=== PATIENT | female | born 1995 | race Caucasian/White ===

== ENCOUNTER 2023-10-18 21:47 | Observation (INO) ==
[2023-10-18] MEDS: ONDANSETRON INJ 2 MG/ML 2 ML VIAL IV STA (22:13)
[2023-10-18 22:28] LABS: Basophils # (auto) 0.07 K/uL (0.00-0.20); Basophils % (auto) 0.4 %; Eosinophils # (auto) 0.08 K/uL (0.00-0.50); Eosinophils % (auto) 0.5 %; Hematocrit (blood only) 45.1 % (37.0-47.0); Hemoglobin 15.4 g/dl (12.0-16.0); Immature Granulocytes # (auto) 0.09 K/uL (0.01-0.20); Immature Granulocytes % (auto) 0.5 %; Lymphocytes # (auto) 0.77 K/uL (1.20-3.40); Lymphocytes % (auto) 4.4 %; Mean Corpuscular Hemoglobin 28.8 pg (25.0-34.0); Mean Corpuscular Hgb Conc 34.1 g/dL (32.0-36.0); Mean Corpuscular Volume 84.3 fL (80.0-100.0); Monocytes # (auto) 0.93 K/uL (0.11-0.59); Monocytes % (auto) 5.4 %; Neutrophils # (auto) 15.43 K/uL (1.40-6.50); Neutrophils % (auto) 88.8 %; Platelet Count 331 K/uL (130-400); RDW Coefficient of Variation 13.7 % (11.5-14.5); RDW Standard Deviation 42.2 fL (36.4-46.3); Red Blood Count 5.35 M/uL (4.20-5.40); White Blood Count 17.37 K/ul (4.8-10.8)
[2023-10-18 22:45] LABS: Albumin Globulin Ratio 1.9 (0.9-2); Albumin Level 4.8 gm/dl (3.4-5.0); BUN Creatinine Ratio 17.4 (10-20); Bilirubin,Total 0.6 mg/dl (0.2-1.0); Calcium 9.6 mg/dl (8.6-10.3); Creatinine Clr Calc Pharmacy 102.5 ml/min; Est GFR (African American) 105.8 ml/min; Est GFR (Non-African American) 91.3 ml/min; Globulin 2.5 gm/dl (2.5-4.0); Potassium 3.8 mmol/L (3.5-5.1); Total Protein 7.3 gm/dl (6.0-8.3)
[2023-10-18 22:47] LABS: Pregnancy Test, Serum Negative (Negative)
--- NOTE | 2023-10-18 22:54 | Emergency Department Note ---
Impression & Plan Near syncope, Nausea, vomiting, and diarrhea, Orthostatic hypotension ED Provider Note CHIEF COMPLAINT: Nausea/vomiting/diarrhea, near syncope HISTORY OF PRESENTING ILLNESS: This is a 28-year-old female who presents to the emergency department by private vehicle with her mother with complaint of nausea/vomiting/diarrhea and feeling lightheaded, which started this evening around 7:30 PM. The patient states that she has been "feeling off" since last night, and that it was just something that she had eaten. She states she was having some nausea after dinner and took 2 Tums and then went for a walk. She states after she got back from the walk she started to have vomiting and diarrhea and then began to feel lightheaded. She states that she has not passed out, but has come close. She denies any bloody or bilious vomit and denies any blood in the stool. She denies any known sick contacts with similar symptoms. She did just complete a Z-Elmer recently for sinus infection, she states her sinus infection symptoms have completely resolved. She denies any fevers or chills. She denies any cough, congestion, sore throat, or other URI symptoms. She denies chest pain, chest tightness, shortness of breath, abdominal pain or back pain. She denies headache, vision changes, numbness/tingling or weakness of the extremities, or balance issues. She denies any urinary symptoms or unusual rash. She is currently on her menses. REVIEW OF SYSTEMS: A complete 10 point review of systems was reviewed with the patient with pertinent positives and negatives as per history of present illness. All else were negative. PAST MEDICAL HISTORY: Migraines, history of ACL repair and rotator cuff repair SOCIAL HISTORY: Lives at home, she denies tobacco use ALLERGIES: Reviewed in chart and with the patient PHYSICAL EXAM: CONSTITUTIONAL: Pleasant and cooperative. Nontoxic-appearing and in no acute distress. Does appear slightly pale. HEENT: Normocephalic, atraumatic. PERRL. Pharynx normal. No tongue, throat, or lip swelling. NECK: Supple, full active range of motion without discomfort. No neck stiffness. RESPIRATORY: Clear to auscultation bilaterally with no wheezing, crackles, rhonchi or stridor. Equal expansion bilaterally. CARDIOVASCULAR: Tachycardic rate, regular rhythm with no murmurs, rubs or gallops. Normal peripheral perfusion. No edema. GASTROINTESTINAL: Soft, nontender to palpation throughout, nondistended. No palpable masses or HSM. Bowel sounds present in all quadrants. No CVA tenderness bilaterally. MUSCULOSKELETAL: Full range of motion of all joints without discomfort. INTEGUMENTARY: No rash or other significant dermatologic conditions noted. NEUROLOGIC: Alert and oriented X 4 with normal affect. No focal neurologic deficits noted. Normal strength and sensation in all 4 extremities. Normal speech. Normal gait observed. ED COURSE AND MEDICAL DECISION MAKING: CC: Patient presenting with complaint of nausea/vomiting/diarrhea, near syncope DIFFERENTIAL DIAGNOSIS: Includes, but not limited to gastroenteritis, infectious colitis, viral illness, acute dehydration, orthostatic hypotension, vasovagal event, allergic reaction/anaphylaxis, anemia, electrolyte abnormality, hypoglycemia, infection, bacteremia/sepsis, cardiac dysrhythmia, pulmonary embolism, among others. INTERPRETATION OF LABS: Leukocytosis, no anemia, normal platelets, no significant electrolyte abnormalities, normal renal function, normal liver enzymes and lipase. Serum negative. Lactate and procalcitonin are not significantly elevated. UA shows ketones with no evidence for UTI. C. difficile negative. Respiratory panel negative. IMAGING: A 1 view chest x-ray was independently reviewed by myself and shows no acute cardiopulmonary abnormality, no pneumothorax or consolidation by my interpretation. EKG: Indication was lightheadedness/near syncope. Shows sinus tachycardia with a rate of 111 bpm, normal intervals, no ST elevation or depression, no ectopy by my interpretation. No previous EKG available for comparison. MEDICATION RECONCILIATION: I attest that I have personally reviewed the patient's current medication list. INITIAL VITAL SIGNS REVIEW: I reviewed the patient's initial vital signs and interpret them as follows: T: Afebrile; BP: Hypotensive; HR: Tachycardic; RR: Within normal limits; Pulse Ox: Within normal limits on room air. MDM SUMMARY: Some initial orders were placed by nursing staff under critical pathways protocol, these were reviewed by me. Patient was evaluated by me in the triage protocol room initially, history and physical exam performed. Patient is notably hypotensive, tachycardic, and presyncopal during exam. No active vomiting, but complains of nausea. The patient was taken to room A4 and was further examined there. Initial labs notable for leukocytosis of 17K, not anemic. The patient is afebrile and does not have any definite infectious source initially identified. The patient denies any rash, itching, throat tightness or shortness of breath. No chest pain or abdominal pain. No calf pain or swelling. I do not have a high suspicion for pulmonary embolism or allergic reaction. 2 L normal saline fluid bolus was ordered for fluid resuscitation. Additional orders were placed at bedside for EKG, blood cultures, lactate and procalcitonin, respiratory and stool bio fire testing, C. difficile testing, chest x-ray, and orthostatic vital signs. Cardiac monitoring: An order was placed for continuous cardiac monitoring. The monitor shows a rate of 114 bpm with sinus tachycardia rhythm. Labs and imaging reviewed, labs notable for leukocytosis, no other significant lab abnormalities. Lactate and procalcitonin are normal. C. difficile negative. Viral respiratory panel negative. No UTI. Chest x-ray is clear with no acute abnormality noted by my interpretation. EKG shows sinus tachycardia with no acute ischemic changes or dysrhythmia. Patient was closely reassessed throughout her ED stay, she continues to deny any abdominal or chest pain. Nausea improved somewhat after zofran. Patient has been persistently hypotensive and tachycardic, with mild improvement, but remains lightheaded with position changes. Orthostatic vital signs were positive after 2 L IV fluids fully infused. Given the patient's persistent symptoms, with persistent hypotension, tachycardia, and lightheadedness after appropriate IV fluid bolus, I did feel the patient warranted admission for further evaluation and workup. I spoke on the phone with Dr. Mcgraw, hospitalist, who agrees to evaluate the patient for admission. The patient and her mother were updated on all results and plan for admission, all questions were answered to the best of my ability and the patient was agreeable to this plan. The patient was stable at the time of admission. Patient discussed with Dr. Siegel, ED attending, who also evaluated the patient and agrees with my assessment, plan, and disposition. The chart was completed utilizing [employer] Speech voice recognition software. Grammatical errors, random word insertions, pronoun errors, and incomplete sentences are an occasional consequence of this system due to software limitations, ambient noise, and hardware issues. Any formal questions or concerns about the content, text, or information contained within the body of this dictation should be directly addressed to the nurse practitioner for clarification. Past Med/Surg History Social History Smoking Status: Never smoker Hx Alcohol Use: Yes Hx Substance Use: No Preferred Language: [place] Communication Ability: Effective Fiber Technologist Required: No Beliefs That Will Affect Care: None Current Living Situation: Significant Other Feels Safe at Home: Yes Safety Concerns: Feels Safe At This Time Allergies Allergies Allergy/AdvReac Type Severity Reaction Status Date / Time amoxicillin Allergy Intermediate Hives Verified 10/18/23 23:50 Penicillins Allergy Intermediate Hives Verified 10/18/23 23:50 Sulfa (Sulfonamide Allergy Intermediate Hives Verified 10/18/23 23:50 Antibiotics) morphine AdvReac Intermediate Vomiting Verified 10/18/23 23:50 Home Meds Home Medications Medication Instructions Recorded Confirmed vit no.95-ferrous 1 tab PO DAILY 10/18/23 10/18/23 fumarate 28 mg-folic acid 800 mcg tablet () Results & Data (ED) Vital Signs Vital Signs - 24 hr 10/18/23 21:57 10/18/23 22:59 10/18/23 22:59 Temperature 36.5 C Temperature Source Temporal Artery Scan Pulse Rate - Lying Pulse Rate - Sitting Pulse Rate - Standing Pulse Rate 124 H 101 H 98 H Pulse Rate [Apical] Pulse Rate from SpO2 Sensor 98 H Pulse Rhythm Pulse Rhythm [Apical] Pulse Strength [Apical] Respiratory Rate 18 21 Respiratory Effort / Characteristics Non-Labored Spontaneous Respiratory Depth Normal Respiratory Pattern Regular Blood Pressure - Lying Blood Pressure - Sitting Blood Pressure- Standing Blood Pressure 85/59 L Blood Pressure [Right Arm] Blood Pressure Mean 67 Blood Pressure Mean [Right Arm] Blood Pressure Position Sitting Blood Pressure Position [Right Arm] Pulse Oximetry 100 100 Oxygen Delivery Method Room Air Sepsis Recent Fever Within 48 Hours No Sepsis New/Unexplained Change in Mental Status No Sepsis Action Taken by Nursing No Action Required 10/18/23 23:00 10/18/23 23:12 10/18/23 23:12 Temperature Temperature Source Pulse Rate - Lying Pulse Rate - Sitting Pulse Rate - Standing Pulse Rate 103 H 102 H Pulse Rate [Apical] Pulse Rate from SpO2 Sensor 102 H 102 H Pulse Rhythm Pulse Rhythm [Apical] Pulse Strength [Apical] Respiratory Rate 15 20 Respiratory Effort / Characteristics Respiratory Depth Respiratory Pattern Blood Pressure - Lying Blood Pressure - Sitting Blood Pressure- Standing Blood Pressure 76/57 L Blood Pressure [Right Arm] Blood Pressure Mean 63 Blood Pressure Mean [Right Arm] Blood Pressure Position Blood Pressure Position [Right Arm] Pulse Oximetry 100 98 Oxygen Delivery Method Room Air Room Air Sepsis Recent Fever Within 48 Hours Sepsis New/Unexplained Change in Mental Status Sepsis Action Taken by Nursing 10/18/23 23:14 10/18/23 23:15 10/18/23 23:15 Temperature Temperature Source Pulse Rate - Lying Pulse Rate - Sitting Pulse Rate - Standing Pulse Rate 103 H 105 H Pulse Rate [Apical] Pulse Rate from SpO2 Sensor 104 H 105 H Pulse Rhythm Pulse Rhythm [Apical] Pulse Strength [Apical] Respiratory Rate 23 27 H Respiratory Effort / Characteristics Respiratory Depth Respiratory Pattern Blood Pressure - Lying Blood Pressure - Sitting Blood Pressure- Standing Blood Pressure 85/55 L Blood Pressure [Right Arm] Blood Pressure Mean 71 Blood Pressure Mean [Right Arm] Blood Pressure Position Blood Pressure Position [Right Arm] Pulse Oximetry 99 99 Oxygen Delivery Method Room Air Room Air Sepsis Recent Fever Within 48 Hours Sepsis New/Unexplained Change in Mental Status Sepsis Action Taken by Nursing 10/18/23 23:16 10/18/23 23:16 10/18/23 23:17 Temperature Temperature Source Pulse Rate - Lying Pulse Rate - Sitting Pulse Rate - Standing Pulse Rate 105 H Pulse Rate [Apical] Pulse Rate from SpO2 Sensor 102 H Pulse Rhythm Pulse Rhythm [Apical] Pulse Strength [Apical] Respiratory Rate 19 Respiratory Effort / Characteristics Respiratory Depth Respiratory Pattern Blood Pressure - Lying Blood Pressure - Sitting Blood Pressure- Standing Blood Pressure 78/57 L 82/66 L Blood Pressure [Right Arm] Blood Pressure Mean 60 68 Blood Pressure Mean [Right Arm] Blood Pressure Position Blood Pressure Position [Right Arm] Pulse Oximetry 99 Oxygen Delivery Method Room Air Sepsis Recent Fever Within 48 Hours Sepsis New/Unexplained Change in Mental Status Sepsis Action Taken by Nursing 10/18/23 23:17 10/18/23 23:18 10/18/23 23:18 Temperature Temperature Source Pulse Rate - Lying Pulse Rate - Sitting Pulse Rate - Standing Pulse Rate 98 H 105 H Pulse Rate [Apical] Pulse Rate from SpO2 Sensor 98 H 105 H Pulse Rhythm Pulse Rhythm [Apical] Pulse Strength [Apical] Respiratory Rate 23 21 Respiratory Effort / Characteristics Respiratory Depth Respiratory Pattern Blood Pressure - Lying Blood Pressure - Sitting Blood Pressure- Standing Blood Pressure 85/56 L Blood Pressure [Right Arm] Blood Pressure Mean 68 Blood Pressure Mean [Right Arm] Blood Pressure Position Blood Pressure Position [Right Arm] Pulse Oximetry 100 100 Oxygen Delivery Method Room Air Room Air Sepsis Recent Fever Within 48 Hours Sepsis New/Unexplained Change in Mental Status Sepsis Action Taken by Nursing 10/18/23 23:19 10/18/23 23:19 10/18/23 23:19 Temperature Temperature Source Pulse Rate - Lying Pulse Rate - Sitting Pulse Rate - Standing Pulse Rate 103 H Pulse Rate [Apical] Pulse Rate from SpO2 Sensor 105 H Pulse Rhythm Pulse Rhythm [Apical] Pulse Strength [Apical] Respiratory Rate 16 Respiratory Effort / Characteristics Respiratory Depth Respiratory Pattern Blood Pressure - Lying Blood Pressure - Sitting Blood Pressure- Standing Blood Pressure 87/55 L 83/57 L Blood Pressure [Right Arm] Blood Pressure Mean 60 68 Blood Pressure Mean [Right Arm] Blood Pressure Position Blood Pressure Position [Right Arm] Pulse Oximetry 100 Oxygen Delivery Method Sepsis Recent Fever Within 48 Hours Sepsis New/Unexplained Change in Mental Status Sepsis Action Taken by Nursing 10/18/23 23:24 10/18/23 23:37 10/18/23 23:37 Temperature 36.8 C Temperature Source Oral Pulse Rate - Lying Pulse Rate - Sitting Pulse Rate - Standing Pulse Rate 111 H Pulse Rate [Apical] Pulse Rate from SpO2 Sensor 111 H Pulse Rhythm Pulse Rhythm [Apical] Pulse Strength [Apical] Respiratory Rate 16 Respiratory Effort / Characteristics Respiratory Depth Respiratory Pattern Blood Pressure - Lying Blood Pressure - Sitting Blood Pressure- Standing Blood Pressure 110/72 Blood Pressure [Right Arm] Blood Pressure Mean 81 Blood Pressure Mean [Right Arm] Blood Pressure Position Blood Pressure Position [Right Arm] Pulse Oximetry 94 Oxygen Delivery Method Room Air Sepsis Recent Fever Within 48 Hours Sepsis New/Unexplained Change in Mental Status Sepsis Action Taken by Nursing 10/18/23 23:40 10/18/23 23:45 10/18/23 23:45 Temperature Temperature Source Pulse Rate - Lying Pulse Rate - Sitting Pulse Rate - Standing Pulse Rate 108 H 102 H Pulse Rate [Apical] Pulse Rate from SpO2 Sensor 103 H Pulse Rhythm Regular Pulse Rhythm [Apical] Pulse Strength [Apical] Respiratory Rate 17 16 Respiratory Effort / Characteristics Respiratory Depth Respiratory Pattern Blood Pressure - Lying Blood Pressure - Sitting Blood Pressure- Standing Blood Pressure 121/72 Blood Pressure [Right Arm] Blood Pressure Mean 84 Blood Pressure Mean [Right Arm] Blood Pressure Position Blood Pressure Position [Right Arm] Pulse Oximetry 97 98 Oxygen Delivery Method Room Air Room Air Sepsis Recent Fever Within 48 Hours Sepsis New/Unexplained Change in Mental Status Sepsis Action Taken by Nursing 10/18/23 23:45 10/19/23 00:00 10/19/23 00:00 Temperature Temperature Source Pulse Rate - Lying Pulse Rate - Sitting Pulse Rate - Standing Pulse Rate 103 H Pulse Rate [Apical] 107 H Pulse Rate from SpO2 Sensor 103 H Pulse Rhythm Pulse Rhythm [Apical] Regular Pulse Strength [Apical] Normal Respiratory Rate 18 18 Respiratory Effort / Characteristics Non-Labored Spontaneous Respiratory Depth Normal Respiratory Pattern Regular Blood Pressure - Lying Blood Pressure - Sitting Blood Pressure- Standing Blood Pressure 106/82 Blood Pressure [Right Arm] 121/72 Blood Pressure Mean 91 Blood Pressure Mean [Right Arm] 88 Blood Pressure Position Blood Pressure Position [Right Arm] Semi-fowlers Pulse Oximetry 100 100 Oxygen Delivery Method Room Air Room Air Sepsis Recent Fever Within 48 Hours Sepsis New/Unexplained Change in Mental Status Sepsis Action Taken by Nursing 10/19/23 00:15 10/19/23 00:30 10/19/23 00:30 Temperature Temperature Source Pulse Rate - Lying Pulse Rate - Sitting Pulse Rate - Standing Pulse Rate 101 H 106 H Pulse Rate [Apical] Pulse Rate from SpO2 Sensor 104 H 104 H Pulse Rhythm Pulse Rhythm [Apical] Pulse Strength [Apical] Respiratory Rate 20 19 Respiratory Effort / Characteristics Respiratory Depth Respiratory Pattern Blood Pressure - Lying Blood Pressure - Sitting Blood Pressure- Standing Blood Pressure 98/65 L Blood Pressure [Right Arm] Blood Pressure Mean 73 Blood Pressure Mean [Right Arm] Blood Pressure Position Blood Pressure Position [Right Arm] Pulse Oximetry 100 100 Oxygen Delivery Method Room Air Room Air Sepsis Recent Fever Within 48 Hours Sepsis New/Unexplained Change in Mental Status Sepsis Action Taken by Nursing 10/19/23 00:45 10/19/23 00:45 10/19/23 01:00 Temperature Temperature Source Pulse Rate - Lying Pulse Rate - Sitting Pulse Rate - Standing Pulse Rate 115 H Pulse Rate [Apical] Pulse Rate from SpO2 Sensor 115 H Pulse Rhythm Pulse Rhythm [Apical] Pulse Strength [Apical] Respiratory Rate 15 Respiratory Effort / Characteristics Respiratory Depth Respiratory Pattern Blood Pressure - Lying Blood Pressure - Sitting Blood Pressure- Standing Blood Pressure 100/66 97/66 L Blood Pressure [Right Arm] Blood Pressure Mean 73 74 Blood Pressure Mean [Right Arm] Blood Pressure Position Blood Pressure Position [Right Arm] Pulse Oximetry 98 Oxygen Delivery Method Room Air Sepsis Recent Fever Within 48 Hours Sepsis New/Unexplained Change in Mental Status Sepsis Action Taken by Nursing 10/19/23 01:00 10/19/23 01:03 10/19/23 01:04 Temperature Temperature Source Pulse Rate - Lying 106 H Pulse Rate - Sitting 115 H Pulse Rate - Standing 134 H Pulse Rate 115 H Pulse Rate [Apical] Pulse Rate from SpO2 Sensor 117 H Pulse Rhythm Pulse Rhythm [Apical] Pulse Strength [Apical] Respiratory Rate 20 Respiratory Effort / Characteristics Respiratory Depth Respiratory Pattern Blood Pressure - Lying 98/62 L Blood Pressure - Sitting 87/69 L Blood Pressure- Standing 92/62 L Blood Pressure 98/62 L Blood Pressure [Right Arm] Blood Pressure Mean 68 Blood Pressure Mean [Right Arm] Blood Pressure Position Blood Pressure Position [Right Arm] Pulse Oximetry 97 Oxygen Delivery Method Room Air Sepsis Recent Fever Within 48 Hours Sepsis New/Unexplained Change in Mental Status Sepsis Action Taken by Nursing 10/19/23 01:04 10/19/23 01:05 10/19/23 01:05 Temperature Temperature Source Pulse Rate - Lying Pulse Rate - Sitting Pulse Rate - Standing Pulse Rate 111 H 113 H Pulse Rate [Apical] Pulse Rate from SpO2 Sensor 111 H 114 H Pulse Rhythm Pulse Rhythm [Apical] Pulse Strength [Apical] Respiratory Rate 21 18 Respiratory Effort / Characteristics Respiratory Depth Respiratory Pattern Blood Pressure - Lying Blood Pressure - Sitting Blood Pressure- Standing Blood Pressure 87/69 L Blood Pressure [Right Arm] Blood Pressure Mean 74 Blood Pressure Mean [Right Arm] Blood Pressure Position Blood Pressure Position [Right Arm] Pulse Oximetry 99 99 Oxygen Delivery Method Room Air Room Air Sepsis Recent Fever Within 48 Hours Sepsis New/Unexplained Change in Mental Status Sepsis Action Taken by Nursing 10/19/23 01:06 10/19/23 01:06 10/19/23 01:15 Temperature Temperature Source Pulse Rate - Lying Pulse Rate - Sitting Pulse Rate - Standing Pulse Rate 133 H Pulse Rate [Apical] Pulse Rate from SpO2 Sensor 133 H Pulse Rhythm Pulse Rhythm [Apical] Pulse Strength [Apical] Respiratory Rate 21 Respiratory Effort / Characteristics Respiratory Depth Respiratory Pattern Blood Pressure - Lying Blood Pressure - Sitting Blood Pressure- Standing Blood Pressure 92/62 L 99/73 L Blood Pressure [Right Arm] Blood Pressure Mean 71 80 Blood Pressure Mean [Right Arm] Blood Pressure Position Blood Pressure Position [Right Arm] Pulse Oximetry 98 Oxygen Delivery Method Room Air Sepsis Recent Fever Within 48 Hours Sepsis New/Unexplained Change in Mental Status Sepsis Action Taken by Nursing 10/19/23 01:15 10/19/23 01:30 10/19/23 01:30 Temperature Temperature Source Pulse Rate - Lying Pulse Rate - Sitting Pulse Rate - Standing Pulse Rate 106 H 97 H Pulse Rate [Apical] Pulse Rate from SpO2 Sensor 105 H 99 H Pulse Rhythm Pulse Rhythm [Apical] Pulse Strength [Apical] Respiratory Rate 16 15 Respiratory Effort / Characteristics Respiratory Depth Respiratory Pattern Blood Pressure - Lying Blood Pressure - Sitting Blood Pressure- Standing Blood Pressure 102/74 Blood Pressure [Right Arm] Blood Pressure Mean 79 Blood Pressure Mean [Right Arm] Blood Pressure Position Blood Pressure Position [Right Arm] Pulse Oximetry 95 92 Oxygen Delivery Method Room Air Room Air Sepsis Recent Fever Within 48 Hours Sepsis New/Unexplained Change in Mental Status Sepsis Action Taken by Nursing 10/19/23 01:45 10/19/23 01:45 10/19/23 02:00 Temperature Temperature Source Pulse Rate - Lying Pulse Rate - Sitting Pulse Rate - Standing Pulse Rate 99 H Pulse Rate [Apical] Pulse Rate from SpO2 Sensor 100 H Pulse Rhythm Pulse Rhythm [Apical] Pulse Strength [Apical] Respiratory Rate 17 Respiratory Effort / Characteristics Respiratory Depth Respiratory Pattern Blood Pressure - Lying Blood Pressure - Sitting Blood Pressure- Standing Blood Pressure 107/67 104/70 Blood Pressure [Right Arm] Blood Pressure Mean 84 74 Blood Pressure Mean [Right Arm] Blood Pressure Position Blood Pressure Position [Right Arm] Pulse Oximetry 93 Oxygen Delivery Method Room Air Sepsis Recent Fever Within 48 Hours Sepsis New/Unexplained Change in Mental Status Sepsis Action Taken by Nursing 10/19/23 02:00 10/19/23 02:15 10/19/23 02:15 Temperature Temperature Source Pulse Rate - Lying Pulse Rate - Sitting Pulse Rate - Standing Pulse Rate 110 H 114 H Pulse Rate [Apical] Pulse Rate from SpO2 Sensor 110 H 113 H Pulse Rhythm Pulse Rhythm [Apical] Pulse Strength [Apical] Respiratory Rate 17 20 Respiratory Effort / Characteristics Respiratory Depth Respiratory Pattern Blood Pressure - Lying Blood Pressure - Sitting Blood Pressure- Standing Blood Pressure 82/53 L Blood Pressure [Right Arm] Blood Pressure Mean 56 Blood Pressure Mean [Right Arm] Blood Pressure Position Blood Pressure Position [Right Arm] Pulse Oximetry 92 91 Oxygen Delivery Method Room Air Room Air Sepsis Recent Fever Within 48 Hours Sepsis New/Unexplained Change in Mental Status Sepsis Action Taken by Nursing 10/19/23 02:31 10/19/23 02:31 10/19/23 02:36 Temperature Temperature Source Pulse Rate - Lying Pulse Rate - Sitting Pulse Rate - Standing Pulse Rate 113 H Pulse Rate [Apical] 119 H Pulse Rate from SpO2 Sensor 112 H Pulse Rhythm Pulse Rhythm [Apical] Regular Pulse Strength [Apical] Normal Respiratory Rate 13 16 Respiratory Effort / Characteristics Non-Labored Spontaneous Respiratory Depth Normal Respiratory Pattern Regular Blood Pressure - Lying Blood Pressure - Sitting Blood Pressure- Standing Blood Pressure 95/72 L Blood Pressure [Right Arm] 95/72 L Blood Pressure Mean 83 Blood Pressure Mean [Right Arm] 79 Blood Pressure Position Blood Pressure Position [Right Arm] Pulse Oximetry 96 95 Oxygen Delivery Method Room Air Room Air Sepsis Recent Fever Within 48 Hours Sepsis New/Unexplained Change in Mental Status Sepsis Action Taken by Nursing 10/19/23 02:45 10/19/23 02:45 10/19/23 02:51 Temperature Temperature Source Pulse Rate - Lying Pulse Rate - Sitting Pulse Rate - Standing Pulse Rate 114 H 110 H Pulse Rate [Apical] Pulse Rate from SpO2 Sensor 112 H Pulse Rhythm Pulse Rhythm [Apical] Pulse Strength [Apical] Respiratory Rate 20 Respiratory Effort / Characteristics Respiratory Depth Respiratory Pattern Blood Pressure - Lying Blood Pressure - Sitting Blood Pressure- Standing Blood Pressure 85/62 L Blood Pressure [Right Arm] Blood Pressure Mean 71 Blood Pressure Mean [Right Arm] Blood Pressure Position Blood Pressure Position [Right Arm] Pulse Oximetry 94 Oxygen Delivery Method Room Air Sepsis Recent Fever Within 48 Hours Sepsis New/Unexplained Change in Mental Status Sepsis Action Taken by Nursing 10/19/23 03:00 10/19/23 03:00 10/19/23 03:15 Temperature Temperature Source Pulse Rate - Lying Pulse Rate - Sitting Pulse Rate - Standing Pulse Rate 114 H Pulse Rate [Apical] Pulse Rate from SpO2 Sensor 112 H Pulse Rhythm Pulse Rhythm [Apical] Pulse Strength [Apical] Respiratory Rate 22 Respiratory Effort / Characteristics Respiratory Depth Respiratory Pattern Blood Pressure - Lying Blood Pressure - Sitting Blood Pressure- Standing Blood Pressure 95/67 L 104/68 Blood Pressure [Right Arm] Blood Pressure Mean 77 77 Blood Pressure Mean [Right Arm] Blood Pressure Position Blood Pressure Position [Right Arm] Pulse Oximetry 95 Oxygen Delivery Method Room Air Sepsis Recent Fever Within 48 Hours Sepsis New/Unexplained Change in Mental Status Sepsis Action Taken by Nursing 10/19/23 03:15 10/19/23 03:30 10/19/23 03:30 Temperature Temperature Source Pulse Rate - Lying Pulse Rate - Sitting Pulse Rate - Standing Pulse Rate 113 H 120 H Pulse Rate [Apical] Pulse Rate from SpO2 Sensor 115 H 120 H Pulse Rhythm Pulse Rhythm [Apical] Pulse Strength [Apical] Respiratory Rate 18 17 Respiratory Effort / Characteristics Respiratory Depth Respiratory Pattern Blood Pressure - Lying Blood Pressure - Sitting Blood Pressure- Standing Blood Pressure 86/62 L Blood Pressure [Right Arm] Blood Pressure Mean 70 Blood Pressure Mean [Right Arm] Blood Pressure Position Blood Pressure Position [Right Arm] Pulse Oximetry 95 93 Oxygen Delivery Method Room Air Room Air Sepsis Recent Fever Within 48 Hours Sepsis New/Unexplained Change in Mental Status Sepsis Action Taken by Nursing 10/19/23 04:00 10/19/23 04:00 10/19/23 04:00 Temperature Temperature Source Pulse Rate - Lying Pulse Rate - Sitting Pulse Rate - Standing Pulse Rate 108 H Pulse Rate [Apical] 104 H Pulse Rate from SpO2 Sensor 107 H Pulse Rhythm Pulse Rhythm [Apical] Regular Pulse Strength [Apical] Normal Respiratory Rate 15 20 Respiratory Effort / Characteristics Non-Labored Spontaneous Respiratory Depth Normal Respiratory Pattern Regular Blood Pressure - Lying Blood Pressure - Sitting Blood Pressure- Standing Blood Pressure 85/51 L Blood Pressure [Right Arm] 85/51 L Blood Pressure Mean 64 Blood Pressure Mean [Right Arm] 62 Blood Pressure Position Blood Pressure Position [Right Arm] Sitting Pulse Oximetry 92 92 Oxygen Delivery Method Room Air Room Air Sepsis Recent Fever Within 48 Hours Sepsis New/Unexplained Change in Mental Status Sepsis Action Taken by Nursing 10/19/23 04:30 10/19/23 04:30 10/19/23 04:32 Temperature Temperature Source Pulse Rate - Lying Pulse Rate - Sitting Pulse Rate - Standing Pulse Rate 108 H Pulse Rate [Apical] Pulse Rate from SpO2 Sensor 108 H Pulse Rhythm Pulse Rhythm [Apical] Pulse Strength [Apical] Respiratory Rate 18 Respiratory Effort / Characteristics Respiratory Depth Respiratory Pattern Blood Pressure - Lying Blood Pressure - Sitting Blood Pressure- Standing Blood Pressure 79/54 L 76/49 L Blood Pressure [Right Arm] Blood Pressure Mean 60 57 Blood Pressure Mean [Right Arm] Blood Pressure Position Blood Pressure Position [Right Arm] Pulse Oximetry 92 Oxygen Delivery Method Room Air Sepsis Recent Fever Within 48 Hours Sepsis New/Unexplained Change in Mental Status Sepsis Action Taken by Nursing 10/19/23 04:32 10/19/23 05:00 10/19/23 05:00 Temperature Temperature Source Pulse Rate - Lying Pulse Rate - Sitting Pulse Rate - Standing Pulse Rate 119 H 107 H Pulse Rate [Apical] Pulse Rate from SpO2 Sensor 119 H 109 H Pulse Rhythm Pulse Rhythm [Apical] Pulse Strength [Apical] Respiratory Rate 20 18 Respiratory Effort / Characteristics Respiratory Depth Respiratory Pattern Blood Pressure - Lying Blood Pressure - Sitting Blood Pressure- Standing Blood Pressure 80/54 L Blood Pressure [Right Arm] Blood Pressure Mean 59 Blood Pressure Mean [Right Arm] Blood Pressure Position Blood Pressure Position [Right Arm] Pulse Oximetry 93 97 Oxygen Delivery Method Room Air Room Air Sepsis Recent Fever Within 48 Hours Sepsis New/Unexplained Change in Mental Status Sepsis Action Taken by Nursing 10/19/23 05:26 10/19/23 05:26 10/19/23 05:27 Temperature Temperature Source Pulse Rate - Lying Pulse Rate - Sitting Pulse Rate - Standing Pulse Rate 132 H Pulse Rate [Apical] Pulse Rate from SpO2 Sensor 131 H Pulse Rhythm Pulse Rhythm [Apical] Pulse Strength [Apical] Respiratory Rate 14 Respiratory Effort / Characteristics Respiratory Depth Respiratory Pattern Blood Pressure - Lying Blood Pressure - Sitting Blood Pressure- Standing Blood Pressure 78/51 L 109/71 Blood Pressure [Right Arm] Blood Pressure Mean 60 76 Blood Pressure Mean [Right Arm] Blood Pressure Position Blood Pressure Position [Right Arm] Pulse Oximetry 99 Oxygen Delivery Method Room Air Sepsis Recent Fever Within 48 Hours Sepsis New/Unexplained Change in Mental Status Sepsis Action Taken by Nursing 10/19/23 05:27 10/19/23 05:30 10/19/23 05:30 Temperature Temperature Source Pulse Rate - Lying Pulse Rate - Sitting Pulse Rate - Standing Pulse Rate 116 H 111 H Pulse Rate [Apical] 111 H Pulse Rate from SpO2 Sensor 117 H 111 H Pulse Rhythm Pulse Rhythm [Apical] Regular Pulse Strength [Apical] Normal Respiratory Rate 18 17 17 Respiratory Effort / Characteristics Non-Labored Spontaneous Respiratory Depth Normal Respiratory Pattern Regular Blood Pressure - Lying Blood Pressure - Sitting Blood Pressure- Standing Blood Pressure Blood Pressure [Right Arm] 111/72 Blood Pressure Mean Blood Pressure Mean [Right Arm] 85 Blood Pressure Position Blood Pressure Position [Right Arm] Lying Pulse Oximetry 97 98 97 Oxygen Delivery Method Room Air Room Air Room Air Sepsis Recent Fever Within 48 Hours Sepsis New/Unexplained Change in Mental Status Sepsis Action Taken by Nursing 10/19/23 05:30 Temperature Temperature Source Pulse Rate - Lying Pulse Rate - Sitting Pulse Rate - Standing Pulse Rate Pulse Rate [Apical] Pulse Rate from SpO2 Sensor Pulse Rhythm Pulse Rhythm [Apical] Pulse Strength [Apical] Respiratory Rate Respiratory Effort / Characteristics Respiratory Depth Respiratory Pattern Blood Pressure - Lying Blood Pressure - Sitting Blood Pressure- Standing Blood Pressure 111/72 Blood Pressure [Right Arm] Blood Pressure Mean 83 Blood Pressure Mean [Right Arm] Blood Pressure Position Blood Pressure Position [Right Arm] Pulse Oximetry Oxygen Delivery Method Sepsis Recent Fever Within 48 Hours Sepsis New/Unexplained Change in Mental Status Sepsis Action Taken by Nursing Laboratory Data 10/19/23 06:41 10/19/23 06:41 Lab Results 10/18/23 10/18/23 10/18/23 Range/Units 22:11 23:25 23:35 WBC 17.37 H (4.8-10.8) K/ul RBC 5.35 (4.20-5.40) M/uL Hgb 15.4 (12.0-16.0) g/dl Hct 45.1 (37.0-47.0) % MCV 84.3 (80.0-100.0) fL MCH 28.8 (25.0-34.0) pg MCHC 34.1 (32.0-36.0) g/dL RDW Std Deviation 42.2 (36.4-46.3) fL RDW Coeff of Ministerio 13.7 (11.5-14.5) % Plt Count 331 (130-400) K/uL MPV 12.0 (9.4-12.4) fL Immature Gran % (Auto) 0.5 % Neut % (Auto) 88.8 % Lymph % (Auto) 4.4 % Tillman % (Auto) 5.4 % Eos % (Auto) 0.5 % Baso % (Auto) 0.4 % Neut # (Auto) 15.43 H (1.40-6.50) K/uL Lymph # (Auto) 0.77 L (1.20-3.40) K/uL Tillman # (Auto) 0.93 H (0.11-0.59) K/uL Eos # (Auto) 0.08 (0.00-0.50) K/uL Baso # (Auto) 0.07 (0.00-0.20) K/uL Immature Gran # (Auto) 0.09 (0.01-0.20) K/uL Sodium 139 (136-145) mmol/L Potassium 3.8 (3.5-5.1) mmol/L Chloride 107 (98-107) mmol/L Carbon Dioxide 23 (21-32) mmol/L Anion Gap 9 (3-11) BUN 15 (6-23) mg/dl Creatinine 0.86 (0.6-1.2) mg/dl Est Cr Clr Drug Dosing 102.5 ml/min Est GFR ( Amer) 105.8 ml/min Est GFR (Non-Af Amer) 91.3 ml/min BUN/Creatinine Ratio 17.4 (10-20) Glucose 129 H (70-99(Fasting)) mg/dl Lactate 1.1 (0.4-2.0) mmol/L Calcium 9.6 (8.6-10.3) mg/dl Magnesium 1.8 (1.7-2.4) mg/dl Total Bilirubin 0.6 (0.2-1.0) mg/dl AST 17 (13-39) U/L ALT 15 (7-52) U/L Alkaline Phosphatase 50 (34-104) U/L Total Protein 7.3 (6.0-8.3) gm/dl Albumin 4.8 (3.4-5.0) gm/dl Globulin 2.5 (2.5-4.0) gm/dl Albumin/Globulin Ratio 1.9 (0.9-2) Lipase 19 (11-82) U/L Procalcitonin 0.07 (0-0.5) ng/ml HCG, Qual Negative (Negative) Urine Color Urine Appearance (Clear) Urine pH (4.5-7.5) Ur Specific [place] (1.000-1.030) Urine Protein (Negative) Urine Glucose (UA) (Negative) Urine Ketones (Negative) Urine Blood (Negative) Urine Nitrite (Negative) Urine Bilirubin (Negative) Urine Urobilinogen (Negative) Ur Leukocyte Esterase (Negative) Urine WBC (Auto) (0-5) /hpf Urine RBC (Auto) (0-4) /hpf U Hyaline Cast (Auto) (0-5) /lpf U Epithel Cells (Auto) (0-5) /lpf Urine Bacteria (Auto) (Negative) Stl C. diff Tox B Gene (Neg) Adenovirus (PCR) Not Detected (NotDetected) B. pertussis DNA (PCR) Not Detected (NotDetected) B.parapertussis DNA PCR Not Detected (NotDetected) C. pneumoniae DNA (PCR) Not Detected (NotDetected) Coronavirus OC43 (PCR) Not Detected (NotDetected) Coronavirus HKU1 (PCR) Not Detected (NotDetected) Coronavirus 229E (PCR) Not Detected (NotDetected) SARS-CoV-2 (PCR) Not Detected (NotDetected) Coronavirus NL63 (PCR) Not Detected (NotDetected) Human Metapneumovir PCR Not Detected (NotDetected) Influenza Type A (PCR) Not Detected (NotDetected) Influenza Type B (PCR) Not Detected (NotDetected) M. pneumoniae (PCR) Not Detected (NotDetected) Parainfluenza 1 (PCR) Not Detected (NotDetected) Parainfluenza 2 (PCR) Not Detected (NotDetected) Parainfluenza 3 (PCR) Not Detected (NotDetected) Parainfluenza 4 (PCR) Not Detected (NotDetected) RSV (PCR) Not Detected (NotDetected) Entero/Rhino (PCR) Not Detected (NotDetected) 10/18/23 Range/Units 23:57 WBC (4.8-10.8) K/ul RBC (4.20-5.40) M/uL Hgb (12.0-16.0) g/dl Hct (37.0-47.0) % MCV (80.0-100.0) fL MCH (25.0-34.0) pg MCHC (32.0-36.0) g/dL RDW Std Deviation (36.4-46.3) fL RDW Coeff of Ministerio (11.5-14.5) % Plt Count (130-400) K/uL MPV (9.4-12.4) fL Immature Gran % (Auto) % Neut % (Auto) % Lymph % (Auto) % Tillman % (Auto) % Eos % (Auto) % Baso % (Auto) % Neut # (Auto) (1.40-6.50) K/uL Lymph # (Auto) (1.20-3.40) K/uL [place] # (Auto) (0.11-0.59) K/uL Eos # (Auto) (0.00-0.50) K/uL Baso # (Auto) (0.00-0.20) K/uL Immature Gran # (Auto) (0.01-0.20) K/uL Sodium (136-145) mmol/L Potassium (3.5-5.1) mmol/L Chloride (98-107) mmol/L Carbon Dioxide (21-32) mmol/L Anion Gap (3-11) BUN (6-23) mg/dl Creatinine (0.6-1.2) mg/dl Est Cr Clr Drug Dosing ml/min Est GFR ( Amer) ml/min Est GFR (Non-Af Amer) ml/min BUN/Creatinine Ratio (10-20) Glucose (70-99(Fasting)) mg/dl Lactate (0.4-2.0) mmol/L Calcium (8.6-10.3) mg/dl Magnesium (1.7-2.4) mg/dl Total Bilirubin (0.2-1.0) mg/dl AST (13-39) U/L ALT (7-52) U/L Alkaline Phosphatase (34-104) U/L Total Protein (6.0-8.3) gm/dl Albumin (3.4-5.0) gm/dl Globulin (2.5-4.0) gm/dl Albumin/Globulin Ratio (0.9-2) Lipase (11-82) U/L Procalcitonin (0-0.5) ng/ml HCG, Qual (Negative) Urine Color Dark Yellow Urine Appearance Clear (Clear) Urine pH 5.5 (4.5-7.5) Ur Specific [place] 1.027 (1.000-1.030) Urine Protein Trace H (Negative) Urine Glucose (UA) Negative (Negative) Urine Ketones 2+ H (Negative) Urine Blood 3+ H (Negative) Urine Nitrite Negative (Negative) Urine Bilirubin 1+ H (Negative) Urine Urobilinogen Negative (Negative) Ur Leukocyte Esterase Trace H (Negative) Urine WBC (Auto) 1-5 (0-5) /hpf Urine RBC (Auto) 0-4 (0-4) /hpf U Hyaline Cast (Auto) 1-5 (0-5) /lpf U Epithel Cells (Auto) 20-30 H (0-5) /lpf Urine Bacteria (Auto) Negative (Negative) Stl C. diff Tox B Gene Negative Cdiff Gene (Neg) Adenovirus (PCR) (NotDetected) B. pertussis DNA (PCR) (NotDetected) B.parapertussis DNA PCR (NotDetected) C. pneumoniae DNA (PCR) (NotDetected) Coronavirus OC43 (PCR) (NotDetected) Coronavirus HKU1 (PCR) (NotDetected) Coronavirus 229E (PCR) (NotDetected) SARS-CoV-2 (PCR) (NotDetected) Coronavirus NL63 (PCR) (NotDetected) Human Metapneumovir PCR (NotDetected) Influenza Type A (PCR) (NotDetected) Influenza Type B (PCR) (NotDetected) M. pneumoniae (PCR) (NotDetected) Parainfluenza 1 (PCR) (NotDetected) Parainfluenza 2 (PCR) (NotDetected) Parainfluenza 3 (PCR) (NotDetected) Parainfluenza 4 (PCR) (NotDetected) RSV (PCR) (NotDetected) Entero/Rhino (PCR) (NotDetected) Administered Medications Dextrose/Sodium Chloride (D5w And Nss) 1,000 mls @ 125 mls/hr IV .Q8H [facility] Stop: 11/18/23 06:19 Last Admin: 10/19/23 07:13 Dose: 125 mls/hr Documented By: ASHLY Discontinued Medications Sodium Chloride (Nss) 1,000 mls @ 999 mls/hr IV .Q1H1M ONE Stop: 10/18/23 23:01 Last Admin: 10/18/23 23:47 Dose: Not Given Documented By: SAKINA Sodium Chloride (Nss) 1,000 mls @ 999 mls/hr IV .Q1H1M ONE Stop: 10/18/23 23:34 Last Infusion: 10/19/23 01:08 Dose: Infused Documented By: Admin: 10/18/23 23:29 Dose: 999 mls/hr Documented By: Infusion: 10/18/23 23:29 Dose: Infused Documented By: Admin: 10/18/23 23:28 Dose: 999 mls/hr Documented By: SAKINA Sodium Chloride (Nss) 1,000 mls @ 999 mls/hr IV .Q1H1M ONE Stop: 10/18/23 23:46 Last Admin: 10/18/23 23:46 Dose: Not Given Documented By: SAKINA Sodium Chloride (Nss) 1,000 mls @ 125 mls/hr IV .Q8H [facility] Stop: 11/18/23 02:44 Last Infusion: 10/19/23 07:14 Dose: Infused Documented By: Infusion: 10/19/23 06:46 Dose: 125 mls/hr Documented By: Admin: 10/19/23 03:36 Dose: 125 mls/hr Documented By: SAKINA Magnesium Sulfate/Dextrose (Magnesium Sulfate / D5w) 1 gm in 100 mls @ 50 mls/hr IV Q2H [facility] Stop: 10/19/23 14:14 Last Infusion: 10/19/23 14:04 Dose: Infused Documented By: Admin: 10/19/23 11:47 Dose: 50 mls/hr Documented By: Infusion: 10/19/23 11:47 Dose: Infused Documented By: Admin: 10/19/23 10:48 Dose: 50 mls/hr Documented By: Infusion: 10/19/23 10:48 Dose: Infused Documented By: Admin: 10/19/23 09:48 Dose: 50 mls/hr Documented By: ASHLY Ondansetron HCl (Ondansetron Inj 2 Mg/Ml 2 Ml Vial) 4 mg IV NOW STA Stop: 10/18/23 22:02 Last Admin: 10/18/23 22:13 Dose: 4 mg Documented By: VLADIMIR Ondansetron HCl (Ondansetron Inj 2 Mg/Ml 2 Ml Vial) 4 mg IV NOW STA Stop: 10/19/23 01:13 Last Admin: 10/19/23 01:18 Dose: 4 mg Documented By: SAKINA Imaging Data Radiologist's Impression: Chest X-Ray 10/18/23 22:45 XR chest 1V portable CLINICAL HISTORY: lightheaded/near syncope TECHNIQUE: Single frontal radiograph of the chest was obtained. Comparison: Comparison is made to chest radiograph for 8:15 FINDINGS: No lines and tubes are seen. The cardiomediastinal silhouette is normal. The lungs are clear. No evidence of pleural effusion or pneumothorax. IMPRESSION: No acute chest disease. ACT 112: Negative or not required by law. Electronically signed by: Ethan Aleman M.D. 10/19/2023 7:07 AM Discharge Plan Visit Data Chief Complaint: Syncope (Near Syncope) Stated Complaint: VOMITING/NAUSEA, FEELS FAINT, DIZZY ED Provider: [facility] ED Midlevel Provider: Yanira Pierson Discharge Problem: Near syncope, Nausea, vomiting, and diarrhea, Orthostatic hypotension Patient Disposition: Admitted As Inpatient Discharge Instructions Interventions: ED Discharge Assessment Last Done: 10/19/23 06:21
[2023-10-18 23:06] LABS: Magnesium 1.8 mg/dl (1.7-2.4)
[2023-10-18] MEDS: SODIUM CHLORIDE 0.9% 1,000 ML IV ONE ×3 (23:28→23:47)
--- NOTE | 2023-10-18 23:40 | Emergency Department Note ---
ED Visit Note I was consulted by the Advanced Practice Provider, LEIA George. I personally made/approved the management plan and take responsibility for the patient management. I performed a substantive portion of the visit. This includes the aspects of: -History/Physical/Personally seeing the patient -MDM .
[2023-10-19 00:14] LABS: Appearance Urine Clear (Clear); Bacteria Urine Automated Negative (Negative); Blood Urine 3+ (Negative); Color Urine Dark Yellow; Epithelial Cell Urine Auto 20-30 /lpf (0-5); Glucose Urine UA Negative (Negative); Ketones Urine 2+ (Negative); Leukocyte Esterase Urine Trace (Negative); Nitrite Urine Negative (Negative); Protein Urine Trace (Negative); RBC Urine Automated 0-4 /hpf (0-4); Specific Gravity Urine 1.027 (1.000-1.030); Urobilinogen Urine Negative (Negative); pH Urine 5.5 (4.5-7.5)
[2023-10-19 00:36] LABS: Adenovirus PCR Not Detected (NotDetected); Bordetella parapertussis PCR Not Detected (NotDetected); Bordetella pertussis PCR Not Detected (NotDetected); Chlamydia pneumoniae PCR Not Detected (NotDetected); Coronavirus 229E PCR Not Detected (NotDetected); Coronavirus CoV-2 (COVID19)PCR Not Detected (NotDetected); Coronavirus HKU1 PCR Not Detected (NotDetected); Coronavirus NL63 PCR Not Detected (NotDetected); Coronavirus OC43PCR Not Detected (NotDetected); Human Metapneumovirus PCR Not Detected (NotDetected); Influenza A PCR Not Detected (NotDetected); Influenza B PCR Not Detected (NotDetected); Mycoplasma pneumoniae PCR Not Detected (NotDetected); Parainfluenza Virus 1 PCR Not Detected (NotDetected); Parainfluenza Virus 2 PCR Not Detected (NotDetected); Parainfluenza Virus 3 PCR Not Detected (NotDetected); Parainfluenza Virus 4 PCR Not Detected (NotDetected); Respiratory Syncytial VirusPCR Not Detected (NotDetected); Rhinovirus/Enterovirus PCR Not Detected (NotDetected)
[2023-10-19 01:01] LABS: Bilirubin Urine 1+ (Negative)
[2023-10-19] MEDS: ONDANSETRON INJ 2 MG/ML 2 ML VIAL IV STA (01:18)
[2023-10-19] MEDS: SODIUM CHLORIDE 0.9% 1,000 ML IV SCH (03:36)
--- NOTE | 2023-10-19 06:05 | History & Physical Report ---
Date of Service October 19, 2023 Assessment & Plan (1) Near syncope: Plan: 28-year-old female with no significant past medical history comes because of nausea, vomiting and diarrhea and near syncope. Yesterday evening when patient came home she felt sick in the stomach. Later she had several episodes of vomiting and diarrhea then she felt like almost passing out. When she came to the ER. On the way she had few more episodes of vomiting. Since then no more episodes. She is able to give small sample of stool which is negative for C. difficile. Stool PCR studies could not be done because of small sample. Couple weeks ago she had a Z-Elmer for sinusitis. Denies any fevers. Denies any abdominal pain. No recent travel. No outside food. No sickness in the family. In the ER initial blood pressure was low and with the fluids is improving. Orthostatics were positive in the ER. Currently resting comfortably. Denies any headache. No blurred visions. No earache or runny nose. No sore throat. No cough. No chest pain. No shortness of breath. Urine is somewhat dark. Patient states about 6 to 7 years ago when she was on vacation she became sick and was she was admitted to the hospital for about a week. It was thought to be a virus infection which affected liver and spleen but she is completely recovered from that episode. Near syncope Orthostatics positive Mostly from nausea vomiting and diarrhea Blood pressure was low when she came in Improved with the fluids Continue IV fluids Monitor orthostatics Monitoring telemetry Nausea vomiting and diarrhea Several episodes C. difficile negative Will check full stool studies Supportive care N.p.o. on IV fluids for now Antiemetics as needed DVT prophylaxis SCDs for now Disposition Observation med/tele Full code History of Present Illness Chief Complaint: Nausea vomiting, diarrhea and near syncope Primary Care Provider: Melody Pressley DO 28-year-old female with no significant past medical history comes because of nausea, vomiting and diarrhea and near syncope. Yesterday evening when patient came home she felt sick in the stomach. Later she had several episodes of vomiting and diarrhea then she felt like almost passing out. When she came to the ER. On the way she had few more episodes of vomiting. Since then no more episodes. She is able to give small sample of stool which is negative for C. difficile. Stool PCR studies could not be done because of small sample. Couple weeks ago she had a Z-Elmer for sinusitis. Denies any fevers. Denies any abdominal pain. No recent travel. No outside food. No sickness in the family. In the ER initial blood pressure was low and with the fluids is improving. Orthostatics were positive in the ER. Currently resting comfortably. Denies any headache. No blurred visions. No earache or runny nose. No sore throat. No cough. No chest pain. No shortness of breath. Urine is somewhat dark. Patient states about 6 to 7 years ago when she was on vacation she became sick and was she was admitted to the hospital for about a week. It was thought to be a virus infection which affected liver and spleen but she is completely recovered from that episode. Past medical history. As mentioned above Past surgical history. None Medications none Family history mother had thyroid disease. Maternal grandmother had heart disease. Hypertension and high cholesterol in the family. Maternal great grandfather had hypotension. Social history. No smoking. No alcohol use Allergies Allergy/AdvReac Type Severity Reaction Status Date / Time amoxicillin Allergy Intermediate Hives Verified 10/18/23 23:50 Penicillins Allergy Intermediate Hives Verified 10/18/23 23:50 Sulfa (Sulfonamide Allergy Intermediate Hives Verified 10/18/23 23:50 Antibiotics) morphine AdvReac Intermediate Vomiting Verified 10/18/23 23:50 Home Medications Medication Instructions Recorded Confirmed Type vit no.95-ferrous 1 tab PO DAILY 10/18/23 10/18/23 History fumarate 28 mg-folic acid 800 mcg tablet () Past Med/Surg History Social History Smoking Status: Never smoker Hx Alcohol Use: Yes Hx Substance Use: No Preferred Language: [place]ian Communication Ability: Effective 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 ENT- oropharynx clear Neck- supple, no JVD. Lungs- clear to auscultation no wheezing or crackles. Heart- regular rhythm; no murmur, no gallop. Abdomen- normal bowel sounds, soft, nontender, no distension Extremities- no pretibial edema, no erythema Neuro- alert, oriented ; no facial palsy; no dysarthria; moves extremities. Results & Data Results & Data Vital Signs (Past 12 Hours) Vital Signs Temp Pulse Pulse Resp BP BP Pulse Ox 10/19/23 05:30 111 H 17 111/72 98 10/19/23 05:00 107 H 18 97 10/19/23 05:00 80/54 L 10/19/23 04:32 119 H 20 93 10/19/23 04:32 76/49 L 10/19/23 04:30 79/54 L 10/19/23 04:30 108 H 18 92 10/19/23 04:00 108 H 20 92 10/19/23 04:00 85/51 L 10/19/23 04:00 104 H 15 85/51 L 92 10/19/23 03:30 86/62 L 10/19/23 03:30 120 H 17 93 10/19/23 03:15 113 H 18 95 10/19/23 03:15 104/68 10/19/23 03:00 95/67 L 10/19/23 03:00 114 H 22 95 10/19/23 02:51 110 H 10/19/23 02:45 114 H 20 94 10/19/23 02:45 85/62 L 10/19/23 02:36 119 H 16 95/72 L 95 10/19/23 02:31 95/72 L 10/19/23 02:31 113 H 13 96 10/19/23 02:15 114 H 20 91 10/19/23 02:15 82/53 L 10/19/23 02:00 110 H 17 92 10/19/23 02:00 104/70 10/19/23 01:45 99 H 17 93 10/19/23 01:45 107/67 10/19/23 01:30 97 H 15 92 10/19/23 01:30 102/74 10/19/23 01:15 106 H 16 95 10/19/23 01:15 99/73 L 10/19/23 01:06 92/62 L 10/19/23 01:06 133 H 21 98 10/19/23 01:05 113 H 18 99 10/19/23 01:05 87/69 L 10/19/23 01:04 111 H 21 99 10/19/23 01:04 98/62 L 10/19/23 01:00 115 H 20 97 10/19/23 01:00 97/66 L 10/19/23 00:45 115 H 15 98 10/19/23 00:45 100/66 10/19/23 00:30 106 H 19 100 10/19/23 00:30 98/65 L 10/19/23 00:15 101 H 20 100 10/19/23 00:00 103 H 18 100 10/19/23 00:00 106/82 10/18/23 23:45 107 H 18 121/72 100 10/18/23 23:45 121/72 10/18/23 23:45 102 H 16 98 10/18/23 23:40 108 H 17 97 10/18/23 23:37 110/72 10/18/23 23:37 111 H 16 94 10/18/23 23:24 36.8 C 10/18/23 23:19 103 H 16 100 10/18/23 23:19 83/57 L 10/18/23 23:19 87/55 L 10/18/23 23:18 85/56 L 10/18/23 23:18 105 H 21 100 10/18/23 23:17 98 H 23 100 10/18/23 23:17 82/66 L 10/18/23 23:16 105 H 19 99 10/18/23 23:16 78/57 L 10/18/23 23:15 105 H 27 H 99 10/18/23 23:15 85/55 L 10/18/23 23:14 103 H 23 99 10/18/23 23:12 102 H 20 98 10/18/23 23:12 76/57 L 10/18/23 23:00 103 H 15 100 10/18/23 22:59 98 H 21 100 10/18/23 22:59 101 H 10/18/23 21:57 36.5 C 124 H 18 85/59 L 100 O2 Del Method 10/19/23 05:30 Room Air 10/19/23 05:00 Room Air 10/19/23 05:00 10/19/23 04:32 Room Air 10/19/23 04:32 10/19/23 04:30 10/19/23 04:30 Room Air 10/19/23 04:00 Room Air 10/19/23 04:00 10/19/23 04:00 Room Air 10/19/23 03:30 10/19/23 03:30 Room Air 10/19/23 03:15 Room Air 10/19/23 03:15 10/19/23 03:00 10/19/23 03:00 Room Air 10/19/23 02:51 10/19/23 02:45 Room Air 10/19/23 02:45 10/19/23 02:36 Room Air 10/19/23 02:31 10/19/23 02:31 Room Air 10/19/23 02:15 Room Air 10/19/23 02:15 10/19/23 02:00 Room Air 10/19/23 02:00 10/19/23 01:45 Room Air 10/19/23 01:45 10/19/23 01:30 Room Air 10/19/23 01:30 10/19/23 01:15 Room Air 10/19/23 01:15 10/19/23 01:06 10/19/23 01:06 Room Air 10/19/23 01:05 Room Air 10/19/23 01:05 10/19/23 01:04 Room Air 10/19/23 01:04 10/19/23 01:00 Room Air 10/19/23 01:00 10/19/23 00:45 Room Air 10/19/23 00:45 10/19/23 00:30 Room Air 10/19/23 00:30 10/19/23 00:15 Room Air 10/19/23 00:00 Room Air 10/19/23 00:00 10/18/23 23:45 Room Air 10/18/23 23:45 10/18/23 23:45 Room Air 10/18/23 23:40 Room Air 10/18/23 23:37 10/18/23 23:37 Room Air 10/18/23 23:24 10/18/23 23:19 10/18/23 23:19 10/18/23 23:19 10/18/23 23:18 10/18/23 23:18 Room Air 10/18/23 23:17 Room Air 10/18/23 23:17 10/18/23 23:16 Room Air 10/18/23 23:16 10/18/23 23:15 Room Air 10/18/23 23:15 10/18/23 23:14 Room Air 10/18/23 23:12 Room Air 10/18/23 23:12 10/18/23 23:00 Room Air 10/18/23 22:59 10/18/23 22:59 10/18/23 21:57 Room Air Diagnostic Findings Laboratory Results WBC 17.37 K/ul (4.8-10.8) H 10/18/23 22:11 RBC 5.35 M/uL (4.20-5.40) 10/18/23 22:11 Hgb 15.4 g/dl (12.0-16.0) 10/18/23 22:11 Hct 45.1 % (37.0-47.0) 10/18/23 22:11 MCV 84.3 fL (80.0-100.0) 10/18/23 22:11 MCH 28.8 pg (25.0-34.0) 10/18/23 22:11 MCHC 34.1 g/dL (32.0-36.0) 10/18/23 22:11 RDW Std Deviation 42.2 fL (36.4-46.3) 10/18/23 22:11 RDW Coeff of Ministerio 13.7 % (11.5-14.5) 10/18/23 22:11 Plt Count 331 K/uL (130-400) 10/18/23 22:11 MPV 12.0 fL (9.4-12.4) 10/18/23 22:11 Immature Gran % (Auto) 0.5 % 10/18/23 22:11 Neut % (Auto) 88.8 % 10/18/23 22:11 Lymph % (Auto) 4.4 % 10/18/23 22:11 [place] % (Auto) 5.4 % 10/18/23 22:11 Eos % (Auto) 0.5 % 10/18/23 22:11 Baso % (Auto) 0.4 % 10/18/23 22:11 Neut # (Auto) 15.43 K/uL (1.40-6.50) H 10/18/23 22:11 Lymph # (Auto) 0.77 K/uL (1.20-3.40) L 10/18/23 22:11 [place] # (Auto) 0.93 K/uL (0.11-0.59) H 10/18/23 22:11 Eos # (Auto) 0.08 K/uL (0.00-0.50) 10/18/23 22:11 Baso # (Auto) 0.07 K/uL (0.00-0.20) 10/18/23 22:11 Immature Gran # (Auto) 0.09 K/uL (0.01-0.20) 10/18/23 22:11 Sodium 139 mmol/L (136-145) 10/18/23 22:11 Potassium 3.8 mmol/L (3.5-5.1) 10/18/23 22:11 Chloride 107 mmol/L (98-107) 10/18/23 22:11 Carbon Dioxide 23 mmol/L (21-32) 10/18/23 22:11 Anion Gap 9 (3-11) 10/18/23 22:11 BUN 15 mg/dl (6-23) 10/18/23 22:11 Creatinine 0.86 mg/dl (0.6-1.2) 10/18/23 22:11 Est Cr Clr Drug Dosing 102.5 ml/min 10/18/23 22:11 Est GFR ( Amer) 105.8 ml/min 10/18/23 22:11 Est GFR (Non-Af Amer) 91.3 ml/min 10/18/23 22:11 BUN/Creatinine Ratio 17.4 (10-20) 10/18/23 22:11 Glucose 129 mg/dl (70-99(Fasting)) H 10/18/23 22:11 Lactate 1.1 mmol/L (0.4-2.0) 10/18/23 23:35 Calcium 9.6 mg/dl (8.6-10.3) 10/18/23 22:11 Magnesium 1.8 mg/dl (1.7-2.4) 10/18/23 22:11 Total Bilirubin 0.6 mg/dl (0.2-1.0) 10/18/23 22:11 AST 17 U/L (13-39) 10/18/23 22:11 ALT 15 U/L (7-52) 10/18/23 22:11 Alkaline Phosphatase 50 U/L (34-104) 10/18/23 22:11 Total Protein 7.3 gm/dl (6.0-8.3) 10/18/23 22:11 Albumin 4.8 gm/dl (3.4-5.0) 10/18/23 22:11 Globulin 2.5 gm/dl (2.5-4.0) 10/18/23 22:11 Albumin/Globulin Ratio 1.9 (0.9-2) 10/18/23 22:11 Lipase 19 U/L (11-82) 10/18/23 22:11 Procalcitonin 0.07 ng/ml (0-0.5) 10/18/23 22:11 HCG, Qual Negative (Negative) 10/18/23 22:11 Urine Color Dark Yellow 10/18/23 23:57 Urine Appearance Clear (Clear) 10/18/23 23:57 Urine pH 5.5 (4.5-7.5) 10/18/23 23:57 Ur Specific [place] 1.027 (1.000-1.030) 10/18/23 23:57 Urine Protein Trace (Negative) H 10/18/23 23:57 Urine Glucose (UA) Negative (Negative) 10/18/23 23:57 Urine Ketones 2+ (Negative) H 10/18/23 23:57 Urine Blood 3+ (Negative) H 10/18/23 23:57 Urine Nitrite Negative (Negative) 10/18/23 23:57 Urine Bilirubin 1+ (Negative) H 10/18/23 23:57 Urine Urobilinogen Negative (Negative) 10/18/23 23:57 Ur Leukocyte Esterase Trace (Negative) H 10/18/23 23:57 Urine WBC (Auto) 1-5 /hpf (0-5) 10/18/23 23:57 Urine RBC (Auto) 0-4 /hpf (0-4) 10/18/23 23:57 U Hyaline Cast (Auto) 1-5 /lpf (0-5) 10/18/23 23:57 U Epithel Cells (Auto) 20-30 /lpf (0-5) H 10/18/23 23:57 Urine Bacteria (Auto) Negative (Negative) 10/18/23 23:57 Stl C. diff Tox B Gene Negative Cdiff Gene (Neg) 10/18/23 23:57 Adenovirus (PCR) Not Detected (NotDetected) 10/18/23 23:25 B. pertussis DNA (PCR) Not Detected (NotDetected) 10/18/23 23:25 B.parapertussis DNA PCR Not Detected (NotDetected) 10/18/23 23:25 C. pneumoniae DNA (PCR) Not Detected (NotDetected) 10/18/23 23:25 Coronavirus OC43 (PCR) Not Detected (NotDetected) 10/18/23 23:25 Coronavirus HKU1 (PCR) Not Detected (NotDetected) 10/18/23 23:25 Coronavirus 229E (PCR) Not Detected (NotDetected) 10/18/23 23:25 SARS-CoV-2 (PCR) Not Detected (NotDetected) 10/18/23 23:25 Coronavirus NL63 (PCR) Not Detected (NotDetected) 10/18/23 23:25 Human Metapneumovir PCR Not Detected (NotDetected) 10/18/23 23:25 Influenza Type A (PCR) Not Detected (NotDetected) 10/18/23 23:25 Influenza Type B (PCR) Not Detected (NotDetected) 10/18/23 23:25 M. pneumoniae (PCR) Not Detected (NotDetected) 10/18/23 23:25 Parainfluenza 1 (PCR) Not Detected (NotDetected) 10/18/23 23:25 Parainfluenza 2 (PCR) Not Detected (NotDetected) 10/18/23 23:25 Parainfluenza 3 (PCR) Not Detected (NotDetected) 10/18/23 23:25 Parainfluenza 4 (PCR) Not Detected (NotDetected) 10/18/23 23:25 RSV (PCR) Not Detected (NotDetected) 10/18/23 23:25 Entero/Rhino (PCR) Not Detected (NotDetected) 10/18/23 23:25 ECG Additional Comments: ECG. Sinus tach rate of 111. No acute ST changes seen. Code Status & VTE Plan VTE Prophylaxis Plan VTE Prophylaxis will be ordered: Yes
[2023-10-19] MEDS ORDERED: NITROGLYCERIN SL 0.4 MG/TAB TAB SL PRN (06:20)
[2023-10-19] MEDS ORDERED: ONDANSETRON INJ 2 MG/ML 2 ML VIAL IV PRN (06:20)
--- NOTE | 2023-10-19 07:08 | XRay Report ---
XR chest 1V portable CLINICAL HISTORY: lightheaded/near syncope TECHNIQUE: Single frontal radiograph of the chest was obtained. Comparison: Comparison is made to chest radiograph for 8:15 FINDINGS: No lines and tubes are seen. The cardiomediastinal silhouette is normal. The lungs are clear. No evid ence of pleural effusion or pneumothorax. IMPRESSION: No acute chest disease. ACT 112: Negative or not required by law. Electronically signed by: Ethan Aleman M.D. 10/19/2023 7:07 AM
[2023-10-19] MEDS: D5W AND NSS 1,000 ML IV SCH (07:13)
[2023-10-19 07:23] LABS: Hematocrit (blood only) 36.3 % (37.0-47.0); Hemoglobin 12.7 g/dl (12.0-16.0); Mean Corpuscular Hemoglobin 29.2 pg (25.0-34.0); Mean Corpuscular Volume 83.4 fL (80.0-100.0); Mean Platelet Volume 12.3 fL (9.4-12.4); Platelet Count 233 K/uL (130-400); RDW Coefficient of Variation 13.8 % (11.5-14.5); RDW Standard Deviation 42.4 fL (36.4-46.3); Red Blood Count 4.35 M/uL (4.20-5.40); White Blood Count 9.69 K/ul (4.8-10.8)
[2023-10-19 07:36] LABS: BUN Creatinine Ratio 22.2 (10-20); Calcium 7.7 mg/dl (8.6-10.3); Est GFR (African American) 140.5 ml/min; Est GFR (Non-African American) 121.2 ml/min; Magnesium 1.6 mg/dl (1.7-2.4); Phosphorus 3.1 mg/dl (2.5-4.9); Potassium 3.6 mmol/L (3.5-5.1)
[2023-10-19 07:56] LABS: Basophils # (auto) 0.02 K/uL (0.00-0.20); Basophils % (auto) 0.2 %; Immature Granulocytes # (auto) 0.03 K/uL (0.01-0.20); Immature Granulocytes % (auto) 0.3 %; Lymphocytes # (auto) 0.41 K/uL (1.20-3.40); Lymphocytes % (auto) 4.2 %; Monocytes # (auto) 0.37 K/uL (0.11-0.59); Monocytes % (auto) 3.8 %; Neutrophils # (auto) 8.86 K/uL (1.40-6.50); Neutrophils % (auto) 91.5 %; Ovalocytes 1+
--- NOTE | 2023-10-19 08:17 | Electrocardiogram Report ---
Test Reason : Blood Pressure : / mmHG Vent. Rate : 111 BPM Atrial Rate : 111 BPM P-R Int : 122 ms QRS Dur : 076 ms QT Int : 324 ms P-R-T Axes : 058 040 038 degrees QTc Int : 440 ms Sinus tachycardia Low voltage QRS Borderline ECG No previous ECGs available Confirmed by Gopi Benton ([id number]) on 10/19/2023 8:17:25 AM Referred By: REFERRED SELF Confirmed By:Gopi Benton
[2023-10-19] MEDS: MAGNESIUM SULFATE / D5W 1 GM/100 ML BAG IV SCH (09:48)
--- NOTE | 2023-10-19 10:16 | Communication Note ---
Date of Service: October 19, 2023 Patient evaluated in ED. Reports no diarrhea since 11pm 10/17. Denies any nausea. Endorses return of appetite. No fevers, pain or other acute concerns. Remains relatively hypotensive and borderline tachy. labs stable this morning Physical exam unremarkable Ms. Ratliff is a 28-year-old female with no significant past medical history admitted for presyncope 2/2 nausea, vomiting and diarrhea resulting in orthostasis Work up negative at this time. Symptoms improved. #Presyncope Orthostatics positive Mostly from nausea vomiting and diarrhea Blood pressure was low when she came in Improved with the fluids Continue IV fluids Monitor orthostatics Monitoring telemetry -Start CLD #Nausea vomiting and diarrhea resolved Several episodes C. difficile negative Will check full stool studies Supportive care DVT prophylaxis SCDs for now Disposition Observation med/tele Potential d/c tomorrow
[2023-10-20 07:32] LABS: Hematocrit (blood only) 36.1 % (37.0-47.0); Hemoglobin 12.1 g/dl (12.0-16.0); Mean Corpuscular Hemoglobin 28.9 pg (25.0-34.0); Mean Corpuscular Hgb Conc 33.5 g/dL (32.0-36.0); Mean Corpuscular Volume 86.4 fL (80.0-100.0); Mean Platelet Volume 11.8 fL (9.4-12.4); Platelet Count 226 K/uL (130-400); RDW Coefficient of Variation 14.3 % (11.5-14.5); RDW Standard Deviation 45.4 fL (36.4-46.3); Red Blood Count 4.18 M/uL (4.20-5.40); White Blood Count 4.42 K/ul (4.8-10.8)
[2023-10-20 08:06] LABS: BUN Creatinine Ratio 11.6 (10-20); Calcium 7.9 mg/dl (8.6-10.3); Creatinine Clr Calc Pharmacy 127.8 ml/min; Est GFR (African American) 136.3 ml/min; Est GFR (Non-African American) 117.6 ml/min; Magnesium 2.2 mg/dl (1.7-2.4); Phosphorus 2.1 mg/dl (2.5-4.9); Potassium 4.1 mmol/L (3.5-5.1)
[2023-10-20] MEDS: SODIUM CHLORIDE 0.9% 1,000 ML IV SCH (11:32)
[2023-10-20] MEDS: POT PHOSPHATE MONOBASIC W/ SOD TAB PO SCH (12:43)
--- NOTE | 2023-10-20 18:11 | Hospitalist Progress Note ---
Date of Service October 20, 2023 Assessment & Plan (1) Near syncope: Plan: 28-year-old female with no significant past medical history comes because of nausea, vomiting and diarrhea and near syncope. Yesterday evening when patient came home she felt sick in the stomach. Later she had several episodes of vomiting and diarrhea then she felt like almost passing out. When she came to the ER. On the way she had few more episodes of vomiting. Since then no more episodes. She is able to give small sample of stool which is negative for C. difficile. Stool PCR studies could not be done because of small sample. Couple weeks ago she had a Z-Elmer for sinusitis. Denies any fevers. Denies any abdominal pain. No recent travel. No outside food. No sickness in the family. In the ER initial blood pressure was low and with the fluids is improving. Orthostatics were positive in the ER. Currently resting comfortably. Denies any headache. No blurred visions. No earache or runny nose. No sore throat. No cough. No chest pain. No shortness of breath. Urine is somewhat dark. Patient states about 6 to 7 years ago when she was on vacation she became sick and was she was admitted to the hospital for about a week. It was thought to be a virus infection which affected liver and spleen but she is completely recovered from that episode. Near syncope Orthostatics positive Mostly from nausea vomiting and diarrhea Blood pressure was low when she came in Improved with the fluids Continue IV fluids Monitor orthostatics Monitoring telemetry Nausea vomiting and diarrhea Several episodes C. difficile negative Will check full stool studies Supportive care N.p.o. on IV fluids for now Antiemetics as needed DVT prophylaxis SCDs for now Disposition Observation med/tele Full code Admission and Anticipated Discharge Date Admission Date: October 19, 2023 Results & Data Results & Data Vital Signs (Past 12 Hours) Vital Signs Temp Pulse Pulse Resp BP Pulse Ox Pulse Ox 10/20/23 12:40 37.1 C 86 18 115/64 97 10/20/23 11:28 86 18 115/64 97 10/20/23 08:29 63 10/20/23 08:00 95 H 18 107/68 96 10/20/23 06:27 65 18 102/58 L 96 10/20/23 06:27 94 O2 Del Method O2 Del Method 10/20/23 12:40 10/20/23 11:28 Room Air 10/20/23 08:29 10/20/23 08:00 Room Air 10/20/23 06:27 Room Air 10/20/23 06:27 Room Air
--- NOTE | 2023-10-20 18:11 | Discharge Summary ---
Discharge Summary Date of Service October 20, 2023 delayed entry date of service noted above Notes For Next Care Provider Medication Changes From Visit None Admission HPI Per Admitting Provider 28-year-old female with no significant past medical history comes because of nausea, vomiting and diarrhea and near syncope. Yesterday evening when patient came home she felt sick in the stomach. Later she had several episodes of vomiting and diarrhea then she felt like almost passing out. When she came to the ER. On the way she had few more episodes of vomiting. Since then no more episodes. She is able to give small sample of stool which is negative for C. difficile. Stool PCR studies could not be done because of small sample. Couple weeks ago she had a Z-Elmer for sinusitis. Denies any fevers. Denies any abdominal pain. No recent travel. No outside food. No sickness in the family. In the ER initial blood pressure was low and with the fluids is improving. Orthostatics were positive in the ER. Currently resting comfortably. Denies any headache. No blurred visions. No earache or runny nose. No sore throat. No cough. No chest pain. No shortness of breath. Urine is somewhat dark. Patient states about 6 to 7 years ago when she was on vacation she became sick and was she was admitted to the hospital for about a week. It was thought to be a virus infection which affected liver and spleen but she is completely recovered from that episode. Past medical history. As mentioned above Past surgical history. None Medications none Family history mother had thyroid disease. Maternal grandmother had heart disease. Hypertension and high cholesterol in the family. Maternal great grandfather had hypotension. Social history. No smoking. No alcohol use Admission Exam Per Admitting Provider General- Not in distress Head- atraumatic Eyes- PERRL. ENT- oropharynx clear Neck- supple, no JVD. Lungs- clear to auscultation no wheezing or crackles. Heart- regular rhythm; no murmur, no gallop. Abdomen- normal bowel sounds, soft, nontender, no distension Extremities- no pretibial edema, no erythema Neuro- alert, oriented ; no facial palsy; no dysarthria; moves extremities. Principal Dx & Hospital Course #1 = Principal Diagnosis (1) Near syncope: per previous hospitalist notes with addendum: 28-year-old female with no significant past medical history comes because of nausea, vomiting and diarrhea and near syncope. Yesterday evening when patient came home she felt sick in the stomach. Later she had several episodes of vomiting and diarrhea then she felt like almost passing out. When she came to the ER. On the way she had few more episodes of vomiting. Since then no more episodes. She is able to give small sample of stool which is negative for C. difficile. Stool PCR studies could not be done because of small sample. Couple weeks ago she had a Z-Elmer for sinusitis. Denies any fevers. Denies any abdominal pain. No recent travel. No outside food. No sickness in the family. In the ER initial blood pressure was low and with the fluids is improving. Orthostatics were positive in the ER. Currently resting comfortably. Denies any headache. No blurred visions. No earache or runny nose. No sore throat. No cough. No chest pain. No shortness of breath. Urine is somewhat dark. Patient states about 6 to 7 years ago when she was on vacation she became sick and was she was admitted to the hospital for about a week. It was thought to be a virus infection which affected liver and spleen but she is completely recovered from that episode. Near syncope Orthostatics positive Mostly from nausea vomiting and diarrhea Blood pressure was low when she came in Improved with the fluids Continue IV fluids Monitor orthostatics Monitoring telemetry 10/19 responded well to IV fluids BP improved denies dizziness when ambulating diarrhea resolved stool panel negative patient states she is ready for discharge Nausea vomiting and diarrhea Several episodes C. difficile negative resolved DVT prophylaxis SCDs for now Discharge Exam General- oriented x 3, not in distress, speaks in sentences with no effort or accessory muscle use Eyes- anicteric Neck- no JVD Lungs- clear breath sounds bilaterally, no rales/wheezes Heart- normal rate, regular rhythm; no murmurs Abdomen- normal bowel sounds, nondistended, soft, nontender Extremities- no pretibial edema, no calf tenderness Neuro- alert, oriented x 3; no gross focal neurologic deficits Skin- warm & dry Updated Medication List Medication Instructions Recorded Confirmed Type vit no.95-ferrous 1 tab PO DAILY 10/18/23 10/18/23 History fumarate 28 mg-folic acid 800 mcg tablet () Hospital Stay Data Consultations 10/19/23 01:20 ED Decision to Admit Stat Diagnostic Imagining Performed Laboratory Results WBC 4.42 K/ul (4.8-10.8) L D 10/20/23 06:32 RBC 4.18 M/uL (4.20-5.40) L 10/20/23 06:32 Hgb 12.1 g/dl (12.0-16.0) 10/20/23 06:32 Hct 36.1 % (37.0-47.0) L 10/20/23 06:32 MCV 86.4 fL (80.0-100.0) 10/20/23 06:32 MCH 28.9 pg (25.0-34.0) 10/20/23 06:32 MCHC 33.5 g/dL (32.0-36.0) 10/20/23 06:32 RDW Std Deviation 45.4 fL (36.4-46.3) 10/20/23 06:32 RDW Coeff of Ministerio 14.3 % (11.5-14.5) 10/20/23 06:32 Plt Count 226 K/uL (130-400) 10/20/23 06:32 MPV 11.8 fL (9.4-12.4) 10/20/23 06:32 Immature Gran % (Auto) 0.3 % 10/19/23 06:41 Neut % (Auto) 91.5 % 10/19/23 06:41 Lymph % (Auto) 4.2 % 10/19/23 06:41 Will % (Auto) 3.8 % 10/19/23 06:41 Eos % (Auto) 0.0 % 10/19/23 06:41 Baso % (Auto) 0.2 % 10/19/23 06:41 Neut # (Auto) 8.86 K/uL (1.40-6.50) H 10/19/23 06:41 Lymph # (Auto) 0.41 K/uL (1.20-3.40) L 10/19/23 06:41 Will # (Auto) 0.37 K/uL (0.11-0.59) 10/19/23 06:41 Eos # (Auto) 0.00 K/uL (0.00-0.50) 10/19/23 06:41 Baso # (Auto) 0.02 K/uL (0.00-0.20) 10/19/23 06:41 Immature Gran # (Auto) 0.03 K/uL (0.01-0.20) 10/19/23 06:41 Ovalocytes 1+ 10/19/23 06:41 Sodium 141 mmol/L (136-145) 10/20/23 06:32 Potassium 4.1 mmol/L (3.5-5.1) 10/20/23 06:32 Chloride 112 mmol/L (98-107) H 10/20/23 06:32 Carbon Dioxide 24 mmol/L (21-32) 10/20/23 06:32 Anion Gap 5 (3-11) 10/20/23 06:32 BUN 8 mg/dl (6-23) 10/20/23 06:32 Creatinine 0.69 mg/dl (0.6-1.2) 10/20/23 06:32 Est Cr Clr Drug Dosing 127.8 ml/min 10/20/23 06:32 Est GFR ( Amer) 136.3 ml/min 10/20/23 06:32 Est GFR (Non-Af Amer) 117.6 ml/min 10/20/23 06:32 BUN/Creatinine Ratio 11.6 (10-20) 10/20/23 06:32 Glucose 98 mg/dl (70-99(Fasting)) 10/20/23 06:32 Lactate 1.1 mmol/L (0.4-2.0) 10/18/23 23:35 Calcium 7.9 mg/dl (8.6-10.3) L 10/20/23 06:32 Phosphorus 2.1 mg/dl (2.5-4.9) L D 10/20/23 06:32 Magnesium 2.2 mg/dl (1.7-2.4) 10/20/23 06:32 Total Bilirubin 0.6 mg/dl (0.2-1.0) 10/18/23 22:11 AST 17 U/L (13-39) 10/18/23 22:11 ALT 15 U/L (7-52) 10/18/23 22:11 Alkaline Phosphatase 50 U/L (34-104) 10/18/23 22:11 Total Protein 7.3 gm/dl (6.0-8.3) 10/18/23 22:11 Albumin 4.8 gm/dl (3.4-5.0) 10/18/23 22:11 Globulin 2.5 gm/dl (2.5-4.0) 10/18/23 22:11 Albumin/Globulin Ratio 1.9 (0.9-2) 10/18/23 22:11 Lipase 19 U/L (11-82) 10/18/23 22:11 Procalcitonin 0.07 ng/ml (0-0.5) 10/18/23 22:11 HCG, Qual Negative (Negative) 10/18/23 22:11 Urine Color Dark Yellow 10/18/23 23:57 Urine Appearance Clear (Clear) 10/18/23 23:57 Urine pH 5.5 (4.5-7.5) 10/18/23 23:57 Ur Specific Star 1.027 (1.000-1.030) 10/18/23 23:57 Urine Protein Trace (Negative) H 10/18/23 23:57 Urine Glucose (UA) Negative (Negative) 10/18/23 23:57 Urine Ketones 2+ (Negative) H 10/18/23 23:57 Urine Blood 3+ (Negative) H 10/18/23 23:57 Urine Nitrite Negative (Negative) 10/18/23 23:57 Urine Bilirubin 1+ (Negative) H 10/18/23 23:57 Urine Urobilinogen Negative (Negative) 10/18/23 23:57 Ur Leukocyte Esterase Trace (Negative) H 10/18/23 23:57 Urine WBC (Auto) 1-5 /hpf (0-5) 10/18/23 23:57 Urine RBC (Auto) 0-4 /hpf (0-4) 10/18/23 23:57 U Hyaline Cast (Auto) 1-5 /lpf (0-5) 10/18/23 23:57 U Epithel Cells (Auto) 20-30 /lpf (0-5) H 10/18/23 23:57 Urine Bacteria (Auto) Negative (Negative) 10/18/23 23:57 Stl C. diff Tox B Gene Negative Cdiff Gene (Neg) 10/18/23 23:57 Adenovirus (PCR) Not Detected (NotDetected) 10/18/23 23:25 B. pertussis DNA (PCR) Not Detected (NotDetected) 10/18/23 23:25 B.parapertussis DNA PCR Not Detected (NotDetected) 10/18/23 23:25 C. pneumoniae DNA (PCR) Not Detected (NotDetected) 10/18/23 23:25 Coronavirus OC43 (PCR) Not Detected (NotDetected) 10/18/23 23:25 Coronavirus HKU1 (PCR) Not Detected (NotDetected) 10/18/23 23:25 Coronavirus 229E (PCR) Not Detected (NotDetected) 10/18/23 23:25 SARS-CoV-2 (PCR) Not Detected (NotDetected) 10/18/23 23:25 Coronavirus NL63 (PCR) Not Detected (NotDetected) 10/18/23 23:25 Human Metapneumovir PCR Not Detected (NotDetected) 10/18/23 23:25 Influenza Type A (PCR) Not Detected (NotDetected) 10/18/23 23:25 Influenza Type B (PCR) Not Detected (NotDetected) 10/18/23 23:25 M. pneumoniae (PCR) Not Detected (NotDetected) 10/18/23 23:25 Parainfluenza 1 (PCR) Not Detected (NotDetected) 10/18/23 23:25 Parainfluenza 2 (PCR) Not Detected (NotDetected) 10/18/23 23:25 Parainfluenza 3 (PCR) Not Detected (NotDetected) 10/18/23 23:25 Parainfluenza 4 (PCR) Not Detected (NotDetected) 10/18/23 23:25 RSV (PCR) Not Detected (NotDetected) 10/18/23 23:25 Entero/Rhino (PCR) Not Detected (NotDetected) 10/18/23 23:25 Impressions Chest X-Ray 10/18/23 22:45 XR chest 1V portable CLINICAL HISTORY: lightheaded/near syncope TECHNIQUE: Single frontal radiograph of the chest was obtained. Comparison: Comparison is made to chest radiograph for 8:15 FINDINGS: No lines and tubes are seen. The cardiomediastinal silhouette is normal. The lungs are clear. No evidence of pleural effusion or pneumothorax. IMPRESSION: No acute chest disease. ACT 112: Negative or not required by law. Electronically signed by: Ethan Aleman M.D. 10/19/2023 7:07 AM Pending Results Patient Have Any Pending Studies at Discharge: No Discharge Instructions Given to Patient (Per Discharging Provider) You were admitted for low blood pressure after self-limited gastroenteritis. Your symptoms resolved and pressure improved with IV fluids. Please continue to hydrate well and focus on nutrition in the coming days. Total Time Total Time Spent Total Time Spent (In Minutes): >30 minutes
== END 2023-10-20 12:40 | disposition home or self-care (01) ==
LOC: EDINP 21:47 → ED 21:47 → SUATTDRO 10-19 05:48 → EDINP 10-19 06:21

== ENCOUNTER 2025-04-22 16:07 | Inpatient (IN) ==
[2025-04-22] MEDS ORDERED: LIDOCAINE 1% LOCAL 20 ML VIAL INFIL PRN (18:58)
--- NOTE | 2025-04-22 19:07 | History & Physical Report ---
Date of Service April 22, 2025 Assessment & Plan (1) Encounter for supervision of normal intrauterine in primigravida, antepartum: Plan: 29 yo G1 at 40 4/7 wga presents in early labor VSS Fetus cat 1 Labor - expectant mgt GBS neg epidural prn History of Present Illness Chief Complaint: ctx Primary Care Provider: Melody Pressley, 29 yo G1 at 40 4/7 wga presents w/ ctx increasing in frequency and intensity. 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 hx: G1 regular cycles denies hx stis Allergies Allergy/AdvReac Type Severity Reaction Status Date / Time amoxicillin Allergy Intermediate Hives Verified 04/22/25 16:23 Penicillins Allergy Intermediate Hives Verified 04/22/25 16:23 Sulfa (Sulfonamide Allergy Intermediate Hives Verified 04/22/25 16:23 Antibiotics) morphine AdvReac Intermediate Vomiting Verified 04/22/25 16:23 Home Medications Medication Instructions Recorded Confirmed Type vit no.95-ferrous 1 tab PO DAILY 10/18/23 04/22/25 History fumarate 28 mg-folic acid 800 mcg tablet () magnesium oxide 250 mg PO DAILY 12/28/24 04/22/25 History Patient History Medical History Migraine headache Headache Acute pharyngitis Abdominal pain Orthostatic hypotension Nausea, vomiting, and diarrhea Near syncope Surgical History History of repair of ACL bilaterally Status post reconstruction of anterior cruciate ligament x3 Status post rotator cuff repair Family History Grandmother (Maternal) Ovarian cancer Denies family history of Breast cancer Colorectal cancer Social History Smoking Status: Never smoker Second Hand Exposure: No; Do You Dip or Chew Tobacco: No; Hx Alcohol Use: No Hx Substance Use: No Preferred Language: Bengali Communication Ability: Effective Billing Rep Required: No Beliefs That Will Affect Care: None marital status: Single marital status details: Feliz Keyniecy (35) [phone] Current Living Situation: Significant Other Current Living Situation Comment: lives with FOB current occupational status: employed current occupation: [employer] Feels Safe at Home: Yes Safety Concerns: Feels Safe At This Time Assistive Devices: None Physical Exam Genitourinary: OB Exam Abdomen: + vertex OB Exam Monitor Tracing: + external FHT monitor used, + external uterine monitor used (q5-6) and + category I (135/mod/+accel/-decel) SVE was 1.5/50/-2 > 2-3/70/-2 Results & Data Vital Signs (Past 12 Hours) Vital Signs Temp Pulse Resp BP 04/22/25 16:21 98.6 F 18 04/22/25 16:21 96 H 116/77 Laboratory Results OB Labs: Blood Type A Positive 09/18/24 Antibody Screen NEGATIVE 09/18/24 Hgb 11.7 g/dl (12.0-16.0) L 01/22/25 Hct 35.9 % (37.0-47.0) L 01/22/25 MCV 87.3 fL (80.0-100.0) 09/18/24 Plt Count 286 K/uL (130-400) 09/18/24 Rubella IgG Antibody Immune (Immune) 09/18/24 Treponema pallidum Ab Negative (Negative) 01/22/25 Hep Bs Antigen Negative (Negative) 09/18/24 Hepatitis C Antibody Negative (Negative) 09/18/24 HIV 1&2 Ab/P24 Ag 4thGn Negative (Negative) 09/18/24 Glucose 1 Hr 50 gm 116 mg/dl (70-130) 01/22/25 OB Optional Labs: Chlamydia trachomatis RNA Not Detected (NotDetected) 09/18/24 Neisseria gonorrhoeae RNA Not Detected (NotDetected) 09/18/24 Labs Reviewed: Horizon 14-negative--mln cfdna-low risk--mln GBS neg Diagnostic Findings ant plac Coding Level of Care Code None Diagnoses Encounter for supervision of normal intrauterine in primigravida, antepartum Z34.00
[2025-04-22 19:56] LABS: Hematocrit (blood only) 36.8 % (37.0-47.0); Hemoglobin 12.9 g/dl (12.0-16.0); Mean Corpuscular Hemoglobin 30.4 pg (25.0-34.0); Mean Corpuscular Volume 86.6 fL (80.0-100.0); Platelet Count 178 K/uL (130-400); RDW Standard Deviation 48.4 fL (36.4-46.3); Red Blood Count 4.25 M/uL (4.20-5.40); White Blood Count 11.19 K/ul (4.8-10.8)
[2025-04-22] MEDS: LACTATED RINGER'S 1,000 ML IV PRN (20:50)
[2025-04-22] MEDS ORDERED: SODIUM CHLORIDE 0.9% PF INJ 10 ML VIAL EPI PRN (21:25)
[2025-04-22] MEDS ORDERED: NALBUPHINE HCL INJ 10 MG/ML AMP IV PRN (21:25)
[2025-04-22] MEDS ORDERED: NALOXONE HCL 1 MG in SODIUM CHLORIDE 0.9% 1,000 ML IV PRN (21:25)
[2025-04-22] MEDS ORDERED: diphenhydrAMINE 50 MG/ML VIAL IV PRN (21:25)
[2025-04-22] MEDS ORDERED: NALOXONE HCL 0.4 MG/1 ML VIAL/CARP IV PRN (21:25)
[2025-04-22] MEDS ORDERED: LIDOCAINE 2% MPF LOCAL 5 ML VIAL EPI PRN (21:25)
[2025-04-22] MEDS ORDERED: ROPIVACAINE 0.5% PF 5 MG/ML 20 ML VIAL EPI PRN (21:25)
[2025-04-22] MEDS ORDERED: BUPIVACAINE 0.25% PF 30 ML VIAL EPI PRN (21:25)
[2025-04-22] MEDS ORDERED: ONDANSETRON INJ 2 MG/ML 2 ML VIAL IV PRN (21:25)
--- NOTE | 2025-04-22 21:26 | Anesthesiology Consultation ---
Date of Service April 22, 2025 Assessment & Plan (1) Encounter for pre-operative examination: Chart Review Chart Review: Patient NOT seen in Pre Admission Testing and Acceptable Risk for Labor Epidural Consults Requested none History Height/Weight Height: 5 ft 6 in Weight: 92.986 kg Allergies Allergy/AdvReac Type Severity Reaction Status Date / Time amoxicillin Allergy Intermediate Hives Verified 04/22/25 16:23 Penicillins Allergy Intermediate Hives Verified 04/22/25 16:23 Sulfa (Sulfonamide Allergy Intermediate Hives Verified 04/22/25 16:23 Antibiotics) morphine AdvReac Intermediate Vomiting Verified 04/22/25 16:23 Medications Home Medications Medication Instructions Recorded Confirmed Last Taken vit no.95-ferrous 1 tab PO DAILY 10/18/23 04/22/25 04/21/25 fumarate 28 mg-folic acid 800 mcg tablet () magnesium oxide 250 mg PO DAILY 12/28/24 04/22/25 04/21/25 Active Medications Generic Name Dose Route Start Last Admin Trade Name Freq PRN Reason Stop Dose Admin Lactated Ringer's 1,000 mls @ 125 mls/hr 04/22/25 18:58 04/22/25 20:50 Lr IV 04/24/25 18:57 999 mls/hr .Q8H PRN Administration L&D Protocol Protocol Past Medical History Medical History Migraine headache Headache Acute pharyngitis Abdominal pain Orthostatic hypotension Nausea, vomiting, and diarrhea Near syncope Past Family History Family History Grandmother (Maternal) Ovarian cancer Denies family history of Breast cancer Colorectal cancer Past Surgical History Surgical History History of repair of ACL bilaterally Status post reconstruction of anterior cruciate ligament x3 Status post rotator cuff repair Social History Smoking Status: Never smoker Do You Dip or Chew Tobacco: No Hx Alcohol Use: No alcohol intake frequency: holidays/special occasions only Hx Substance Use: No substance use type: does not use Physical Exam Vital Signs Last Vital Signs Temp 98.1 F 04/22/25 19:30 Pulse 96 H 04/22/25 19:06 Resp 16 04/22/25 19:30 BP 124/78 04/22/25 19:06 Testing Laboratory Results 04/22/25 19:38
[2025-04-22] MEDS: fentANYL 2 MCG/ML BUPIVacaine 0.125%-NSS 100ML BAG ONE (21:42)
[2025-04-22] MEDS: LIDOCAINE 2%/EPINEPHRINE 1:200,000 20 ML PF ONE (21:51)
[2025-04-22] MEDS: BUPIVACAINE 0.25% PF 30 ML VIAL ONE (21:51)
[2025-04-22] MEDS: SODIUM CHLORIDE 0.9% PF INJ 10 ML VIAL ONE (22:02)
[2025-04-22] MEDS: LIDOCAINE 2%/EPINEPHRINE 1:200,000 20 ML PF EPI STA (22:02)
[2025-04-22] MEDS: SODIUM CHLORIDE 0.9% PF INJ 10 ML VIAL EPI STA (22:02)
[2025-04-22] MEDS: BUPIVACAINE 0.25% PF 30 ML VIAL EPI STA (22:02)
[2025-04-22] MEDS: NURSING L&D Epidural Breakthrough Pain Update ONE (23:01)
[2025-04-23] MEDS ORDERED: OXYTOCIN 30 UNITS/NSS 30 UNITS/500 ML BAG IV PRN ×2 (03:49→08:57)
[2025-04-23] MEDS: fentANYL 2 MCG/ML BUPIVacaine 0.125%-NSS 100ML BAG EPI PRN (03:57)
--- NOTE | 2025-04-23 03:58 | Labor Progress Brief Note ---
Date of Service April 23, 2025 Subjective comfortable w/ epidural Assessment & Plan (1) Encounter for supervision of normal intrauterine in primigravida, antepartum: Plan: 29 yo G1 at 40 4/7 wga presents in early labor VSS Fetus cat 1 Labor - discussed arom and pt agreeable, ctx spaced just recently so will see if improves pattern. if not, will add pit GBS neg epidural in place Admission and Anticipated Discharge Date Admission Date: April 22, 2025 Physical Exam Genitourinary: Manual OB Exam: + cervical dilation 5 cm, + cervical effacement 70%, + station -2 and + amniotic fluid (arom clear) OB Exam Monitor Tracing: + external FHT monitor used, + external uterine monitor used (q5-6) and + category I (120/mod/+accel/-decel) Results & Data Vital Signs (Past 12 Hours) Vital Signs Temp Pulse Resp BP Pulse Ox 04/23/25 03:51 109 H 98 04/23/25 03:46 80 96 04/23/25 03:41 84 95 04/23/25 03:39 82 98/50 L 04/23/25 03:36 79 96 04/23/25 03:35 89 94 04/23/25 03:31 82 95 04/23/25 03:29 85 94 04/23/25 03:26 87 96 04/23/25 03:25 85 96/51 L 04/23/25 03:21 86 96 04/23/25 03:16 85 95 04/23/25 03:11 90 95 04/23/25 03:09 85 92/54 L 04/23/25 03:06 94 H 95 04/23/25 03:01 82 95 04/23/25 02:56 84 96 04/23/25 02:54 93 H 94/51 L 94 04/23/25 02:51 86 95 04/23/25 02:46 82 96 04/23/25 02:41 80 96 04/23/25 02:39 85 95/53 L 04/23/25 02:36 80 96 04/23/25 02:31 83 96 04/23/25 02:30 16 04/23/25 02:30 16 04/23/25 02:26 97 04/23/25 02:26 83 04/23/25 02:26 82 91/52 L 04/23/25 02:21 83 96 04/23/25 02:16 82 97 04/23/25 02:11 82 91/52 L 96 04/23/25 02:06 92 H 96 04/23/25 02:01 83 96 04/23/25 02:00 16 04/23/25 02:00 16 04/23/25 01:56 89 96 04/23/25 01:54 82 96/50 L 04/23/25 01:51 83 97 04/23/25 01:46 81 96 04/23/25 01:41 84 97 04/23/25 01:39 82 96/54 L 04/23/25 01:36 80 98 04/23/25 01:31 86 96 04/23/25 01:30 16 04/23/25 01:30 16 04/23/25 01:26 84 96 04/23/25 01:24 82 98/55 L 04/23/25 01:21 83 97 04/23/25 01:16 88 96 04/23/25 01:11 81 96 04/23/25 01:10 81 96/53 L 04/23/25 01:06 84 96 04/23/25 01:01 83 96 04/23/25 01:00 16 04/23/25 01:00 16 04/23/25 00:56 80 97 04/23/25 00:54 88 101/55 L 04/23/25 00:51 86 97 04/23/25 00:46 84 96 04/23/25 00:41 88 97 04/23/25 00:39 84 103/59 L 04/23/25 00:36 103 H 98 04/23/25 00:31 85 96 04/23/25 00:30 16 04/23/25 00:30 16 04/23/25 00:26 96 04/23/25 00:26 75 04/23/25 00:26 72 108/64 04/23/25 00:21 72 97 04/23/25 00:16 73 96 04/23/25 00:11 72 96 04/23/25 00:09 70 108/66 04/23/25 00:06 73 96 04/23/25 00:01 76 95 04/23/25 00:00 16 04/23/25 00:00 16 04/22/25 23:58 98.2 F 09/07/25 23:56 81 95 04/22/25 23:55 80 115/64 04/22/25 23:51 98 H 95 04/22/25 23:46 90 95 04/22/25 23:41 95 H 97 04/22/25 23:39 85 106/60 04/22/25 23:36 78 95 04/22/25 23:31 80 96 04/22/25 23:30 16 04/22/25 23:30 16 04/22/25 23:26 99 04/22/25 23:26 94 H 04/22/25 23:26 87 120/76 04/22/25 23:21 90 98 04/22/25 23:16 91 H 98 04/22/25 23:11 89 97 04/22/25 23:09 91 H 128/74 04/22/25 23:06 95 H 98 04/22/25 23:01 97 H 96 04/22/25 23:00 16 04/22/25 23:00 16 04/22/25 22:56 91 H 96 04/22/25 22:51 93 H 96 04/22/25 22:46 87 95 04/22/25 22:41 99 H 98 04/22/25 22:40 97 H 121/74 04/22/25 22:36 98 H 99 04/22/25 22:31 108 H 95 04/22/25 22:30 16 04/22/25 22:30 16 04/22/25 22:26 92 H 97 04/22/25 22:24 101 H 124/79 04/22/25 22:22 90 131/84 04/22/25 22:21 91 H 96 04/22/25 22:16 95 H 131/82 97 04/22/25 22:11 100 H 128/79 98 04/22/25 22:07 98 H 120/74 04/22/25 22:06 103 H 97 04/22/25 22:03 90 127/73 04/22/25 22:01 101 H 122/72 99 04/22/25 22:00 16 04/22/25 22:00 16 04/22/25 21:59 92 H 127/76 04/22/25 21:57 98 H 127/73 04/22/25 21:56 98 H 97 04/22/25 21:55 100 H 126/74 04/22/25 21:52 104 H 131/84 04/22/25 21:51 102 H 98 04/22/25 21:46 106 H 96 04/22/25 21:41 100 H 100 04/22/25 21:36 106 H 95 04/22/25 19:30 16 04/22/25 19:30 98.1 F 16 04/22/25 19:06 96 H 124/78 04/22/25 16:21 98.6 F 18 04/22/25 16:21 96 H 116/77 Coding Level of Care Code None Diagnoses Encounter for supervision of normal intrauterine in primigravida, antepartum Z34.00
[2025-04-23] MEDS: OXYTOCIN 30 UNITS/NSS 30 UNITS/500 ML BAG IV PRN ×2 (05:18→08:52)
--- NOTE | 2025-04-23 07:07 | Labor Progress Brief Note ---
Date of Service April 23, 2025 Subjective comfortable w/ epidural Assessment & Plan (1) Encounter for supervision of normal intrauterine in primigravida, antepartum: Plan: 29 yo G1 at 40 4/7 wga presents in early labor VSS Fetus cat 1 Labor - pit at 4, now complete but not feeling pressure at all. Will get table set up and start pushing GBS neg epidural in place Admission and Anticipated Discharge Date Admission Date: April 22, 2025 Physical Exam Genitourinary: Manual OB Exam: + cervical dilation 10 cm and + station + 2 OB Exam Monitor Tracing: + external FHT monitor used, + external uterine monitor used (q3) and + category I (130/mod/+accel/-decel) Results & Data Vital Signs (Past 12 Hours) Vital Signs Temp Pulse Resp BP Pulse Ox 04/23/25 06:58 86 91 04/23/25 06:57 86 97 04/23/25 06:56 77 91/53 L 04/23/25 06:52 81 97 04/23/25 06:47 84 96 04/23/25 06:42 83 95 04/23/25 06:39 79 97/54 L 04/23/25 06:37 79 96 04/23/25 06:32 75 97 04/23/25 06:30 18 04/23/25 06:30 18 04/23/25 06:27 92 H 99 04/23/25 06:24 82 93/52 L 04/23/25 06:22 88 97 04/23/25 06:17 88 99 04/23/25 06:15 108 H 92 04/23/25 06:12 86 100 04/23/25 06:10 80 118/68 04/23/25 06:07 87 99 04/23/25 06:02 89 98 04/23/25 05:58 18 04/23/25 05:58 98.2 F 18 04/23/25 05:57 69 97 04/23/25 05:54 76 103/65 04/23/25 05:52 75 98 04/23/25 05:47 70 97 04/23/25 05:42 76 96 04/23/25 05:40 69 98/59 L 04/23/25 05:37 73 96 04/23/25 05:32 76 95 04/23/25 05:30 16 04/23/25 05:30 16 04/23/25 05:27 85 96 04/23/25 05:24 82 104/69 04/23/25 05:22 85 97 04/23/25 05:17 77 98 04/23/25 05:12 71 96 04/23/25 05:09 73 102/67 04/23/25 05:07 69 97 04/23/25 05:02 74 95 04/23/25 05:00 18 04/23/25 05:00 18 04/23/25 04:57 80 98 04/23/25 04:54 76 101/63 04/23/25 04:52 82 97 04/23/25 04:47 77 96 04/23/25 04:42 85 97 04/23/25 04:39 88 117/65 04/23/25 04:37 81 97 04/23/25 04:32 92 H 98 04/23/25 04:30 18 04/23/25 04:30 18 04/23/25 04:27 85 97 04/23/25 04:25 76 116/61 91 04/23/25 04:22 88 98 04/23/25 04:17 91 H 97 04/23/25 04:12 105 H 96 04/23/25 04:10 93 H 122/76 04/23/25 04:06 93 H 96 04/23/25 04:01 104 H 97 04/23/25 04:00 16 04/23/25 04:00 98.1 F 16 04/23/25 03:56 106 H 97 04/23/25 03:51 109 H 98 04/23/25 03:46 80 96 04/23/25 03:41 84 95 04/23/25 03:39 82 98/50 L 04/23/25 03:36 79 96 04/23/25 03:35 89 94 04/23/25 03:31 82 95 04/23/25 03:29 85 94 04/23/25 03:26 87 96 04/23/25 03:25 85 96/51 L 04/23/25 03:21 86 96 04/23/25 03:16 85 95 04/23/25 03:11 90 95 04/23/25 03:09 85 92/54 L 04/23/25 03:06 94 H 95 04/23/25 03:01 82 95 04/23/25 02:56 84 96 04/23/25 02:54 93 H 94/51 L 94 04/23/25 02:51 86 95 04/23/25 02:46 82 96 04/23/25 02:41 80 96 04/23/25 02:39 85 95/53 L 04/23/25 02:36 80 96 04/23/25 02:31 83 96 04/23/25 02:30 16 04/23/25 02:30 16 04/23/25 02:26 97 04/23/25 02:26 83 04/23/25 02:26 82 91/52 L 04/23/25 02:21 83 96 04/23/25 02:16 82 97 04/23/25 02:11 82 91/52 L 96 04/23/25 02:06 92 H 96 04/23/25 02:01 83 96 04/23/25 02:00 16 04/23/25 02:00 16 04/23/25 01:56 89 96 04/23/25 01:54 82 96/50 L 04/23/25 01:51 83 97 04/23/25 01:46 81 96 04/23/25 01:41 84 97 04/23/25 01:39 82 96/54 L 04/23/25 01:36 80 98 04/23/25 01:31 86 96 04/23/25 01:30 16 04/23/25 01:30 16 04/23/25 01:26 84 96 04/23/25 01:24 82 98/55 L 04/23/25 01:21 83 97 04/23/25 01:16 88 96 04/23/25 01:11 81 96 04/23/25 01:10 81 96/53 L 04/23/25 01:06 84 96 04/23/25 01:01 83 96 04/23/25 01:00 16 04/23/25 01:00 16 04/23/25 00:56 80 97 04/23/25 00:54 88 101/55 L 04/23/25 00:51 86 97 04/23/25 00:46 84 96 04/23/25 00:41 88 97 04/23/25 00:39 84 103/59 L 04/23/25 00:36 103 H 98 04/23/25 00:31 85 96 04/23/25 00:30 16 04/23/25 00:30 16 04/23/25 00:26 96 04/23/25 00:26 75 04/23/25 00:26 72 108/64 04/23/25 00:21 72 97 04/23/25 00:16 73 96 04/23/25 00:11 72 96 04/23/25 00:09 70 108/66 04/23/25 00:06 73 96 04/23/25 00:01 76 95 04/23/25 00:00 16 04/23/25 00:00 16 04/22/25 23:58 98.2 F 04/22/25 23:56 81 95 04/22/25 23:55 80 115/64 04/22/25 23:51 98 H 95 04/22/25 23:46 90 95 04/22/25 23:41 95 H 97 04/22/25 23:39 85 106/60 04/22/25 23:36 78 95 04/22/25 23:31 80 96 04/22/25 23:30 16 04/22/25 23:30 16 04/22/25 23:26 99 04/22/25 23:26 94 H 04/22/25 23:26 87 120/76 04/22/25 23:21 90 98 04/22/25 23:16 91 H 98 04/22/25 23:11 89 97 04/22/25 23:09 91 H 128/74 04/22/25 23:06 95 H 98 04/22/25 23:01 97 H 96 04/22/25 23:00 16 04/22/25 23:00 16 04/22/25 22:56 91 H 96 04/22/25 22:51 93 H 96 04/22/25 22:46 87 95 04/22/25 22:41 99 H 98 04/22/25 22:40 97 H 121/74 04/22/25 22:36 98 H 99 04/22/25 22:31 108 H 95 04/22/25 22:30 16 04/22/25 22:30 16 04/22/25 22:26 92 H 97 04/22/25 22:24 101 H 124/79 04/22/25 22:22 90 131/84 04/22/25 22:21 91 H 96 04/22/25 22:16 95 H 131/82 97 04/22/25 22:11 100 H 128/79 98 04/22/25 22:07 98 H 120/74 04/22/25 22:06 103 H 97 04/22/25 22:03 90 127/73 04/22/25 22:01 101 H 122/72 99 04/22/25 22:00 16 04/22/25 22:00 16 04/22/25 21:59 92 H 127/76 04/22/25 21:57 98 H 127/73 04/22/25 21:56 98 H 97 04/22/25 21:55 100 H 126/74 04/22/25 21:52 104 H 131/84 04/22/25 21:51 102 H 98 04/22/25 21:46 106 H 96 04/22/25 21:41 100 H 100 04/22/25 21:36 106 H 95 04/22/25 19:30 16 04/22/25 19:30 98.1 F 16 04/22/25 19:06 96 H 124/78 Coding Level of Care Code None Diagnoses Encounter for supervision of normal intrauterine in primigravida, antepartum Z34.00
--- NOTE | 2025-04-23 08:33 | Delivery Summary ---
Vaginal Delivery Summary Date of Service April 23, 2025 Vaginal Delivery Summary and 2nd Degree LAC Patient progressed to 10 cm dilated, 100% effaced, +2 station pressure intact perineum with epidural anesthesia and delivery of viable with weight and Apgars pending. Had the delivered without difficulty quickly followed by shoulders and body. was noted be vigorous upon delivery and a 1 minute delayed cord clamping was initiated. Cord was then double clamped and cut remained on maternal abdomen. Cord blood obtained and attention turned to delivery of placenta was delivered intact with three-vessel cord with gentle cord traction. Inspection of perineum vagina and cervix are noted to be a second-degree perineal laceration which was repaired with 3-0 Vicryl traditional crown stitch. Mother and stable in the immediate postdelive ry timeframe. No complications noted and blood loss per QBL. Needle, sponge and instrument counts correct at the completion of the case. [facility] [place] Vaginal Delivery Charge Delivery Type Details: and 2nd Degree LAC
[2025-04-23] MEDS ORDERED: HYDROCORTISONE ACETATE 25 MG SUPP PR PRN (08:57)
--- NOTE | 2025-04-23 10:24 | Anesthesia Procedure Note ---
Date of Service April 23, 2025 Anesthesia Post Epidural Note Vital Signs Vital Signs: Temp Pulse Resp BP Pulse Ox O2 Del Method 36.9 C 92 H 16 115/66 98 Room Air 04/23/25 09:15 04/23/25 10:18 04/23/25 09:30 04/23/25 10:16 04/23/25 10:18 04/23/25 07:15 Pain Intensity Medial Abdomen: Pain Intensity: 0 Notes Mental Status: alert / awake / arousable Nausea / Vomiting: adequately controlled Pain: adequately controlled Airway Patency, RR, SpO2: stable & adequate BP & HR: stable & adequate Hydration State: stable & adequate Neuraxial Anesthesia: was administered and sensory block is resolving Anesthetic Complications: no major complications apparent and Pt Satisfied with anesthetic care Epidural: Removed without complications and With tip intact
[2025-04-23] MEDS: BENZOCAINE 20% SPRY 85 APPLN/85 GM CAN EXT PRN (11:06)
[2025-04-23] MEDS: ACETAMINOPHEN 325 MG TAB PO PRN (11:06)
[2025-04-23] MEDS: DIPHTHER/TETAN/PERTUS Vaccine (Tdap, Adol/Adult) 0.5mL IM ONE (11:07)
[2025-04-23] MEDS: IBUPROFEN 600 MG TAB PO PRN (15:32)
[2025-04-23] MEDS: DOCUSATE SODIUM 100 MG CAP PO SCH (20:16)
[2025-04-24 06:14] LABS: Hematocrit (blood only) 31.0 % (37.0-47.0); Hemoglobin 10.4 g/dl (12.0-16.0); Mean Corpuscular Hemoglobin 30.0 pg (25.0-34.0); Mean Corpuscular Volume 89.3 fL (80.0-100.0); Platelet Count 146 K/uL (130-400); RDW Standard Deviation 50.9 fL (36.4-46.3); Red Blood Count 3.47 M/uL (4.20-5.40); White Blood Count 10.53 K/ul (4.8-10.8)
--- NOTE | 2025-04-24 06:39 | Obstetrical Progress Note ---
Date of Service <Yovana Sahni MD - Last Filed: 04/24/25 07:32> April 24, 2025 Assessment & Plan <Yovana Sahni MD - Last Filed: 04/24/25 07:32> (1) care following vaginal delivery: Plan -Continue stable routine care. Breast feeding. Rhesus positive. Rubella Immune. Monitor <Radha Light MD, FACOG - Last Filed: 04/25/25 08:35> (1) care following vaginal delivery: Subjective <Yovana Sahni MD - Last Filed: 04/24/25 07:32> Ambulation: ambulating normally Voiding: no voiding problems Passing Gas:: Yes Diet Tolerance:: regular diet Lochia:: Small Feeding Type:: breast feeding Current Pain Level(1-10): 0 PPD1. Pt resting comfortable at bedside. Review of Systems All systems reviewed & are unremarkable except as noted in HPI & below i. Denies fever, chills, sweats ii. Denies SOB, difficulty breathing, chest pain, palpitations, chest pressure iii. Denies breast pain. iv. Denies Dysuria v. Denies headache or changes in vision. Physical Exam <Yovana Sahni MD - Last Filed: 04/24/25 07:32> Constitutional WD/WN, vitals as above Respiratory normal respiratory effort, lungs clear to auscultation Cardiovascular RRR, no murmur, no edema Gastrointestinal (Abdomen) normal bowel sounds, soft, nontender, no hepatosplenomegaly On palpation of abdomen, fundus is at the umbilicus. uterus is firm and has begun involution, at approximately 1cm/day Skin no rashes, warm and dry Psychiatric A+Ox3, euthymic affect Results & Data <Yovana Sahni MD - Last Filed: 04/24/25 07:32> Vital Signs (Past 12 Hours) Vital Signs Temp Pulse Resp BP Pulse Ox O2 Del Method 04/24/25 04:30 36.4 C L 88 16 111/74 99 Room Air 04/23/25 23:45 36.5 C 90 16 108/72 99 Room Air 04/23/25 20:10 36.4 C L 109 H 19 123/82 98 Room Air Supervising Physician <Radha Light MD, FACOG - Last Filed: 04/25/25 08:35> Co-Signing Physician Notes Resident Physician Supervision Note: I was present with [Name of resident] during the history and exam. I discussed the case with the resident and agree with the findings and plan as documented in the note. Any exceptions or clarifications are listed here: [None] Documented By: Radha Light MD, FACOG
[2025-04-24] MEDS: PRENATAL VITAMIN 1 TAB PO SCH (09:05)
[2025-04-25 00:53] VITALS: TEMP 98.6; O2SAT 98
[2025-04-25 06:24] LABS: Hematocrit (blood only) 30.3 % (37.0-47.0); Hemoglobin 10.2 g/dl (12.0-16.0)
--- NOTE | 2025-04-25 07:42 | Obstetrical Progress Note ---
Date of Service <Yovana Sahni MD - Last Filed: 04/25/25 07:42> April 25, 2025 Assessment & Plan <Yovana Sahni MD - Last Filed: 04/25/25 07:42> (1) care following vaginal delivery: Plan -Continue stable routine care. Bottle feeding. Rhesus positive. Rubella Immune. Monitor <Yolanda Alexander MD, FACOG - Last Filed: 04/25/25 08:26> (1) care following vaginal delivery: Subjective <Yovana Sahni MD - Last Filed: 04/25/25 07:42> Ambulation: ambulating normally Voiding: no voiding problems Passing Gas:: Yes Diet Tolerance:: regular diet Lochia:: Small Feeding Type:: bottle feeding Current Pain Level(1-10): 0 PPD 2. Pt resting comfortably at bedside. Review of Systems All systems reviewed & are unremarkable except as noted in HPI & below i. Denies fever, chills, sweats ii. Denies SOB, difficulty breathing, chest pain, palpitations, chest pressure iii. Denies breast pain. iv. Denies Dysuria v. Denies headache or changes in vision. Physical Exam <Yovana Sahni MD - Last Filed: 04/25/25 07:42> Constitutional WD/WN, vitals as above Respiratory normal respiratory effort, lungs clear to auscultation Cardiovascular RRR, no murmur, no edema Gastrointestinal (Abdomen) normal bowel sounds, soft, nontender, no hepatosplenomegaly On palpation of abdomen, fundus is at the level of the umbilicus and continuing to decrease in height. Uterus is firm and is involuting, at approximately 1cm/day. Skin no rashes, warm and dry Psychiatric A+Ox3, euthymic affect Results & Data <Yovana Sanhi MD - Last Filed: 04/25/25 07:42> Vital Signs (Past 12 Hours) Vital Signs Temp Pulse Resp BP Pulse Ox O2 Del Method 04/25/25 00:45 37.0 C 86 16 115/79 98 Room Air 04/24/25 20:00 36.9 C 87 18 117/74 99 Room Air Supervising Physician <Yolanda Alexander MD, FACOG - Last Filed: 04/25/25 08:26> Co-Signing Physician Notes Resident Physician Supervision Note: I was present with Dr. Sahni during the history and exam. I discussed the case with the resident and agree with the findings and plan as documented in the note. Any exceptions or clarifications are listed here: pt doing well, eating, voiding, ambulating. bottle feeding. ready to go home. cor rrr, lungs ctab, abd soft ff 2 down nt, ext nt calves. ppd#2 s/p , dc home, instructions reviewed. f/u 6 wk ppcheck. Documented By: Yolanda Alexander MD, FACOG Resident Activity Tracking <Yovana Sahni MD - Last Filed: 04/25/25 07:42> Resident Involvement: Resident Care Provided Care Provided: OB Delivery
[2025-04-25 08:15] VITALS: BP 122/77; PULSE 98; RESP 18
== END 2025-04-25 10:00 | disposition home or self-care (01) | DRG 807 ==
LOC: OPB 16:07 → 4S1 16:11 → 4E2 04-23 11:00